=== PATIENT | female | born 1990 | race Caucasian/White ===

== ENCOUNTER → 2019-07-04 10:27 | Outpatient (CLI) | payer OTHER, SELFPAY ==
[2019-07-04 11:08] LABS: Basophils Absolute Auto 0 /uL (0-100); Basophils Percent Auto 0.3 % (0-2); Eosinophils Absolute Auto 100 /uL (0-450); Eosinophils Percent Auto 1.9 % (2-4); Hematocrit 40.5 % (36-46); Hemoglobin 13.9 g/dL (12.0-16.0); Lymphocytes Absolute Auto 2500 /uL (1100-4500); Lymphocytes Percent Auto 37.5 % (25-40); Mean Corpuscular HGB Conc 34.4 % (30-36); Mean Corpuscular Hemoglobin 30.4 PG (26-34); Mean Corpuscular Volume 88.1 fL (80-100); Monocytes Absolute Auto 500 /uL (0-900); Monocytes Percent Auto 7.9 % (3-14); Neutrophils Absolute Auto 3400 /uL (1500-7000); Neutrophils Percent Auto 52.4 % (50-75); Red Blood Cell Count 4.59 X10^6/uL (4.0-5.2); Red Cell Distribution Width 13.2 % (11.6-14.8); White Blood Cell Count 6.5 X10^3/uL (4.5-11.0)
[2019-07-04 11:16] LABS: Add Manual Diff / Slide Review SLIDE REVIEW
[2019-07-04 11:39] LABS: Alanine Aminotransferase 18 IU/L (<35); Albumin 4.3 g/dL (3.5-5.0); Albumin Globulin Ratio 1.4 (1.0-2.8); Alkaline Phosphatase 79 U/L (38-126); Aspartate Aminotransferase 26 IU/L (14-36); BUN Creatinine Ratio 14.7 (6-22); Bilirubin Total 0.4 mg/dL (0.2-1.3); Blood Urea Nitrogen 10 mg/dL (7-17); Calcium 9.6 mg/dL (8.4-10.2); Carbon Dioxide 26 mmol/L (22-32); Chloride 106 mmol/L (98-107); Cholesterol 158 mg/dL (140-199); Estimated Glomerular Filt Rate > 60.0 mL/min (>60); Globulin 3.1 g/dL (1.7-4.1); Glucose 105 mg/dL (70-100); HDL Cholesterol 39 mg/dL (40-60); HEMOLYSIS < 15 (0-50); LDL Cholesterol Calculated 103 mg/dL (<100); Potassium 4.3 mmol/L (3.4-5.1); Sodium 138 mmol/L (137-145); Total Protein 7.4 g/dL (6.3-8.2); Triglycerides 78 mg/dL (35-150)
[2019-07-04 12:08] LABS: Thyroid Stimulating Hormone 3.03 uIU/mL (0.47-4.68)
[2019-07-04 13:07] LABS: Hemoglobin A1C% w Est Avg Glu 4.7 % (4.0-6.0)
[2019-07-04 13:17] LABS: RBC Morphology Normal Morphology
[2019-07-04 13:18] LABS: Platelet Count 302 X10^3/uL (150-400)
== END ==
PROVIDERS: PCP Naturopath; Referring Provider Naturopath; Visit Provider Naturopath
DX: Z00.00 Encounter for general adult medical examination without abnormal findings (principal); Z13.29 Encounter for screening for other suspected endocrine disorder
CPT/HCPCS: 36415; 80053; 80061; 83036; 84443; 85025; 86900; 86901

== ENCOUNTER → 2020-02-26 17:12 | Outpatient (CLI) | payer OTHER, SELFPAY ==
--- NOTE | 2020-02-26 | DI.US.S_ITS ---
PROCEDURE: US OB <= 14 WEEKS FETUS INDICATIONS: 1st with spotting OUTSIDE/PRIOR DATING DATA: Last menstrual period (LMP): 12/31/19. LMP-based estimated date of delivery (JAGDISH): 10/06/20 . First dating scan (date and location): 02/26/20 . Estimated date of delivery (JAGDISH) from first dating scan: 10/01/20 . TECHNIQUE: Real-time scanning was performed of the fetuses and maternal pelvic organs, with image documentation. Endovaginal scanning: Performed for better visualization of the fetuses and maternal adnexal structures. COMPARISON: None. FINDINGS: General: An intrauterine diamniotic dichorionic twin is present, as evidenced by separate placental sites and/or intervening membrane thickness of greater than 2 mm at this early gestational age. Embryo A: Maternal right position. [place]-rump length measures 1.92 cm, 8 weeks 3 days. heart rate measures 163 beats per minute. Yolk sac seen. Embryo B: Maternal left position. [place]-rump length measures 2.2 cm, 8 weeks 6 days. heart rate measures 169 beats per minute. Yolk sac seen. Measurement variability in dating: +/- 4 weeks by LMP, +/- 7 days by mean sac diameter (use before 6 weeks gestation if crown-rump length unable to be measured), +/- 5 days by crown-rump length (up to 8 weeks 6 days gestation), +/- 7 days by crown-rump length (up to 13 weeks 6 days gestation). Maternal organs: Ovaries unremarkable. Cervical length 4.4 cm. Limited images through the kidneys demonstrate no hydronephrosis. IMPRESSION: Twin living intrauterine fetuses as above. JAGDISH of 10/01/20, concordant with reported LMP. Dictated by: Cesar Mccullough M.D. on 02/27/2020 at 9:52 Approved by: Cesar Mccullough M.D. on 02/27/2020 at 9:56
== END ==
PROVIDERS: PCP Naturopath; Referring Provider Nurse Practitioner Obstetrics & Gynecology; Visit Provider Nurse Practitioner Obstetrics & Gynecology
DX: O26.851 Spotting complicating pregnancy, first trimester (principal); O30.041 Twin pregnancy, dichorionic/diamniotic, first trimester; Z3A.08 8 weeks gestation of pregnancy
CPT/HCPCS: 76801

== ENCOUNTER → 2020-04-27 15:28 | Outpatient (CLI) | payer OTHER, SELFPAY ==
[2020-04-27 15:48] LABS: Add Manual Diff / Slide Review NO; Basophils Absolute Auto 0 /uL (0-100); Basophils Percent Auto 0.2 % (0-2); Eosinophils Absolute Auto 100 /uL (0-450); Eosinophils Percent Auto 0.7 % (2-4); Hematocrit 36.1 % (36-46); Hemoglobin 12.5 g/dL (12.0-16.0); Lymphocytes Absolute Auto 1800 /uL (1100-4500); Lymphocytes Percent Auto 17.6 % (25-40); Mean Corpuscular HGB Conc 34.7 % (30-36); Mean Corpuscular Hemoglobin 30.6 PG (26-34); Monocytes Absolute Auto 600 /uL (0-900); Monocytes Percent Auto 5.9 % (3-14); Neutrophils Absolute Auto 7600 /uL (1500-7000); Neutrophils Percent Auto 75.6 % (50-75); Platelet Count 302 X10^3/uL (150-400); Red Cell Distribution Width 14.2 % (11.6-14.8)
[2020-04-27 20:31] LABS: HIV 1 & 2 Ab/Ag 4th Gen Combo NEGATIVE (NEGATIVE); Hep C Virus Ab w/Reflex Quant NEGATIVE s/c (NEGATIVE); Hepatitis B Surface Antigen NEGATIVE s/c (NEGATIVE); Rubella Antibody IgG 28.8 IU/mL (>15)
[2020-04-28 07:08] LABS: RPR Screen Non Reactive (Non Reactive)
[2020-04-28 08:40] LABS: Varicella IgG Antibody 2539 index (Immune >165)
== END ==
PROVIDERS: PCP Naturopath; Referring Provider Obstetrics & Gynecology; Visit Provider Obstetrics & Gynecology
DX: O30.001 Twin pregnancy, unspecified number of placenta and unspecified number of amniotic sacs, first trimester (principal)
CPT/HCPCS: 36415; 80055; 86787; 86803; 86850; 86900; 86901; 87389

== ENCOUNTER → 2020-05-25 11:04 | Outpatient (CLI) | payer OTHER, SELFPAY ==
--- NOTE | 2020-05-25 11:05 | DI.US.S_ITS ---
PROCEDURE: US OB >= 14 WEEKS FETUS INDICATIONS: ANATOMY-TWINS OUTSIDE/PRIOR DATING DATA: Last menstrual period (LMP): 12/31/2019. LMP-based estimated date of delivery (JAGDISH): 10/06/2020 . First dating scan (date and location): 02/26/2020 . Estimated date of delivery (JAGDISH) from first dating scan: 10/04/2020 . TECHNIQUE: Real-time scanning was performed of the fetuses, with image documentation and biometric measurements. Endovaginal scanning: No COMPARISON: None. FINDINGS: General: An intrauterine dichorionic-diamniotic twin is present, as evidenced by separate placentas, differing sexes, or an intervening membrane of greater than 2 mm. Amniotic fluid index (composite): 14.2 cm. Maternal cervical canal: 4.1 cm long. Normal lower limit is 2.5 cm. FETUS A: Fetus is located on the maternal right side, and is in vertex presentation. Largest amniotic fluid pocket: Not obtained Placental position is posterior , without previa. heart rate: 147 beats per minute. biometrics: Biparietal diameter: 21 weeks 4 days Head circumference: 21 weeks 5 days Abdominal circumference: 23 weeks 3 days Femur length: 22 weeks 2 days Estimated gestational age from initial scan: 21 weeks 1 day Composite gestational age from present scan: 22 weeks 2 days Estimated weight and percentile: 528 g; 99th percentile Measurement variability for biometric dating: +/- 7 days from 14 weeks to 15 weeks 6 days gestation, +/- 10 days from 16 weeks to 21 weeks 6 days gestation, +/- 2 weeks from 22 weeks to 27 weeks 6 days gestation, +/- 3 weeks for 28 weeks gestation or later. weight reference: 4500 g or EFW >90/95% is considered macrosomia or large for gestational age. EFW <10% is small for gestational age. EFW 5% or less is considered intra-uterine growth restriction. Anatomic survey: Neuro: Ventricles are normal at less than 10 mm. Cisterna magna is normal at 3-11 mm. Cerebellum is normal in size and morphology. Nuchal skin fold: Normal at less than 6 mm between 14 and 21 weeks gestational age. Face: Nose and lips, facial profile are normal. Spine: No evidence for spina bifida. Heart: 4 chambered heart is present, with normal ventricular outflow tracts. Diaphragm: Diaphragm is intact. Stomach: Left-sided stomach is present. Kidneys: No hydronephrosis. Normal ranges are less than 5 mm in 2nd trimester, less than 7 mm in 3rd trimester. Cord: 3 vessel cord has orthotopic insertion. Bladder: Normal in size. Extremities: All 4 extremities are visualized. FETUS B: Fetus is located on the maternal left side, and is in breech presentation. Largest amniotic fluid pocket: Not obtained Placental position is posterior , without previa. heart rate: 162 beats per minute. biometrics: Biparietal diameter: 20 weeks 5 days Head circumference: 20 weeks 6 days Abdominal circumference: 21 weeks Femur length: 20 weeks 4 days Estimated gestational age from initial scan: 21 weeks 1 Composite gestational age from present scan: 21 weeks 1 day Estimated weight and percentile: 413 g; 53rd percentile Measurement variability for biometric dating: +/- 7 days from 14 weeks to 15 weeks 6 days gestation, +/- 10 days from 16 weeks to 21 weeks 6 days gestation, +/- 2 weeks from 22 weeks to 27 weeks 6 days gestation, +/- 3 weeks for 28 weeks gestation or later. weight reference: 4500 g or EFW >90/95% is considered macrosomia or large for gestational age. EFW <10% is small for gestational age. EFW 5% or less is considered intra-uterine growth restriction. Anatomic survey: Neuro: Ventricles are normal at less than 10 mm. Cisterna magna is normal at 3-11 mm. Cerebellum is normal in size and morphology. Nuchal skin fold: Normal at less than 6 mm between 14 and 21 weeks gestational age. Face: Nose and lips, facial profile are normal. Spine: No evidence for spina bifida. Heart: 4 chambered heart is present, with normal ventricular outflow tracts. Diaphragm: Diaphragm is intact. Stomach: Left-sided stomach is present. Kidneys: No hydronephrosis. Normal ranges are less than 5 mm in 2nd trimester, less than 7 mm in 3rd trimester. Cord: 3 vessel cord has orthotopic insertion. Bladder: Normal in size. Extremities: All 4 extremities are visualized. IMPRESSION: 1. Living twin diamniotic dichorionic redemonstrated and estimated weight for fetus A is 99th percentile and 53rd percentile for fetus B. Continued follow-up recommended. 2. Normal anatomic survey for each fetus. Dictated by: Shayne MEJIA Interpreted: Jamila Hays MD on 05/25/2020 at 16:40 Approved by: Jamila Hays M.D. on 05/25/2020 at 17:12
[2020-05-27 19:07] LABS: Calc Gestational Age Ultrasound (.); Estriol, Free 5.15 ng/mL (.); Inhibin A, Dimeric 299.44 pg/mL (.); Inhibin A, MoM 2.57 (.); Maternal Ethnicity Caucasian (.); Maternal Weight 273 lbs (.); Number of Fetuses Twins (.); OSBR Risk 1 IN 578 (.); Results Report (.); Test Results *Screen Negative* (.); hCG, MoM 1.94 (.)
== END ==
PROVIDERS: PCP Naturopath; Referring Provider Obstetrics & Gynecology; Visit Provider Obstetrics & Gynecology
DX: O30.042 Twin pregnancy, dichorionic/diamniotic, second trimester (principal); Z3A.22 22 weeks gestation of pregnancy
CPT/HCPCS: 36415; 76811; 76812; 82105; 82677; 84702; 86336

== ENCOUNTER → 2020-06-29 16:14 | Outpatient (CLI) | payer OTHER, SELFPAY | PROVIDERS: PCP Naturopath; Visit Provider Obstetrics & Gynecology | DX: Z34.02 Encounter for supervision of normal first pregnancy, second trimester (principal); Z3A.26 26 weeks gestation of pregnancy | CPT/HCPCS: 87086 ==

== ENCOUNTER → 2020-07-05 12:35 | Outpatient (CLI) | payer OTHER, SELFPAY ==
[2020-07-05 14:21] LABS: Hematocrit 31.6 % (36-46); Hemoglobin 10.9 g/dL (12.0-16.0)
[2020-07-05 14:59] LABS: GTT (PREG) 1 Hour PP 50gm Dose 150 mg/dL (76-139)
== END ==
PROVIDERS: PCP Naturopath; Referring Provider Obstetrics & Gynecology; Visit Provider Obstetrics & Gynecology
DX: Z34.02 Encounter for supervision of normal first pregnancy, second trimester (principal); Z3A.26 26 weeks gestation of pregnancy
CPT/HCPCS: 36415; 82950; 85014; 85018

== ENCOUNTER → 2020-07-12 09:58 | Outpatient (CLI) | payer OTHER, SELFPAY ==
[2020-07-12 13:40] LABS: Glucose Tol Interp,Gestational INTERPRETATION
[2020-07-12 14:07] LABS: Glucose 2 Hour Gest 156 mg/dL (76-155)
[2020-07-12 14:07] LABS: Glucose 1 Hour Gest 163 mg/dL (76-180)
[2020-07-12 14:08] LABS: Glucose 3 Hour Gest 119 mg/dL (76-140)
[2020-07-12 14:08] LABS: Glucose Fasting Gestational 81 mg/dL (76-95)
== END ==
PROVIDERS: PCP Naturopath; Referring Provider Obstetrics & Gynecology; Visit Provider Obstetrics & Gynecology
DX: Z34.90 Encounter for supervision of normal pregnancy, unspecified, unspecified trimester (principal); R73.09 Other abnormal glucose
CPT/HCPCS: 36415; 82951; 82952

== ENCOUNTER 2020-08-30 14:53 | Observation (INO) | payer OTHER, SELFPAY | END 2020-08-30 19:00 | disposition home or self-care (01) | PROVIDERS: Admitting Provider Obstetrics & Gynecology; PCP Naturopath; Referring Provider Obstetrics & Gynecology; Visit Provider Obstetrics & Gynecology | DX: O30.049 Twin pregnancy, dichorionic/diamniotic, unspecified trimester (principal); Z3A.35 35 weeks gestation of pregnancy | CPT/HCPCS: 87653; G0378; G0379 ==

== ENCOUNTER → 2020-08-30 16:23 | Outpatient (CLI) | payer OTHER, SELFPAY ==
[2020-08-31 14:47] LABS: Strep Grp B PCR NEG for Grp B Strep
== END ==
PROVIDERS: PCP Naturopath; Visit Provider Obstetrics & Gynecology
DX: Z34.03 Encounter for supervision of normal first pregnancy, third trimester (principal); Z3A.35 35 weeks gestation of pregnancy
CPT/HCPCS: 87653

== ENCOUNTER 2020-09-06 12:14 | Inpatient (IN) | payer OTHER, SELFPAY ==
[2020-09-06 16:05] LABS: Add Manual Diff / Slide Review NO; Basophils Absolute Auto 100 /uL (0-100); Basophils Percent Auto 0.8 % (0-2); Eosinophils Absolute Auto 0 /uL (0-450); Eosinophils Percent Auto 0.3 % (2-4); Hematocrit 29.3 % (36-46); Hemoglobin 9.5 g/dL (12.0-16.0); Lymphocytes Absolute Auto 1600 /uL (1100-4500); Lymphocytes Percent Auto 21.7 % (25-40); Mean Corpuscular HGB Conc 32.6 % (30-36); Mean Corpuscular Hemoglobin 25.1 PG (26-34); Mean Corpuscular Volume 76.9 fL (80-100); Monocytes Absolute Auto 500 /uL (0-900); Monocytes Percent Auto 6.8 % (3-14); Neutrophils Absolute Auto 5300 /uL (1500-7000); Neutrophils Percent Auto 70.4 % (50-75); Platelet Count 311 X10^3/uL (150-400); Red Cell Distribution Width 16.3 % (11.6-14.8); White Blood Cell Count 7.5 X10^3/uL (4.5-11.0)
[2020-09-06 16:18] LABS: Aspartate Aminotransferase 24 IU/L (14-36); BUN Creatinine Ratio 10.2 (6-22); Blood Urea Nitrogen 6 mg/dL (7-17); Estimated Glomerular Filt Rate > 60.0 mL/min (>60); Uric Acid 7.7 mg/dL (2.5-6.2)
[2020-09-06 17:30] LABS: Protein (Total) Urine Random 4160 mg/dL (0-12)
[2020-09-06 17:55] LABS: Protein Creatinine Ratio Urine 14.19 GRAM/24H
--- NOTE | 2020-09-06 18:24 | PM.OBHP.1 ---
OB HPI Date/Time Date of admission: 09/06/20 Date Patient Seen: 09/06/20 Time Patient Seen: 18:26 History of Present Condition Chief complaint: Estimated Date of Delivery: 10/04/20 Estimated Gestational Age (weeks): 36 Narrative: Johana Tineo is a 30 year old at 36 weeks 0 days with spontaneous, di-di twins, now admitted for surveillance for preeclampsia without severe features. The patient had elevated blood pressures in clinic and 3+ urine protein on urine dip, along with a weight gain of 9 lb in 1 week. She was sent to Labor and delivery for monitoring and preeclampsia labs. Platelets, liver function, kidney function were normal, though the patient had an elevated uric acid and a significantly elevated urine protein creatinine ratio. Blood pressures continued to be 130s to 140s over 80s to 90s. Patient has no headaches, visual changes, right upper quadrant pain, chest pain, or obstetric complaints. Her has been otherwise uncomplicated, though she had some early vaginal bleeding. She has no other contributory medical, surgical, or social history. History of Present care: good care Dating criteria: LMP confirmed by 1st trimester US Ultrasounds: normal 1st trimester US and normal mid trimester US Obstetrical complications: preeclampsia Medical complications: none Preadmission Labs Blood type: O (+) positive -: Antibody screen: negative, GBS status: negative, HBsAG: negative, HIV: negative and RPR/VDLR: negative -: Rubella: immune and Varicella: immune 1 hr GTT: 150 3 hr GTT: 1 hr (163), 2 hr (156) and 3 hr (119) Fasting blood glucose: 83 Evaluation Evaluation Baseline heart rate: 135 Variability: Moderate (11-25) monitor accelerations: Present Monitor Decelerations: Absent Contraction Frequency (minutes): 3 Uterine Contraction Intensity: Mild Category of Tracing: Reactive Status: Category l Laboratory results: Laboratory Tests 09/06/20 09/06/20 09/06/20 15:52 15:52 16:00 WBC 7.5 RBC 3.80 L Hgb 9.5 L Hct 29.3 L MCV 76.9 L MCH 25.1 L MCHC 32.6 RDW 16.3 H Plt Count 311 Neut % (Auto) 70.4 Lymph % (Auto) 21.7 L [place] % (Auto) 6.8 Eos % (Auto) 0.3 L Baso % (Auto) 0.8 Neut # (Auto) 5300 Lymph # (Auto) 1600 [place] # (Auto) 500 Eos # (Auto) 0 Baso # (Auto) 100 BUN 6 L Creatinine 0.59 Estimated GFR > 60.0 BUN/Creatinine Ratio 10.2 Uric Acid 7.7 H AST 24 U Random Total Protein 4160 H Urine Creatinine 293.0 Protein/Creatinin Ratio 14.19 Comments: Baby B baseline 135, moderate variability, accels, no decels, category 1. Asymptomatic intermittent contractions, as often as Q tube patient does not feel them. No other obstetric complaints. Patient had ultrasound performed by Dr. Mcgee, normal fluid for both babies, both babies vertex, both babies AGA. 08/25 growth: Baby a is in the vertex presentation. A GA 35 weeks 5 days. 6 lb 0 oz. 56%ile. Baby B in the vertex presentation. AGA 37 weeks 2 days. 7 lb 1 oz. 85%ile [facility] Medical History Anxiety Dichorionic diamniotic twin (~02/2020) Ingrown toenail of both feet (~2011) Surgical History S/P matrixectomy of toe (~2011) Family History Mother Anemia Gallbladder disease Autoimmune hemolytic anemia Father Myocardial infarction Heavy smoker Optic nerve disorder Non-arteritic AION (anterior ischemic optic neuropathy) Grandmother Diabetes mellitus CVA (cerebral vascular accident) Hypertension Grandfather No problems noted. Grandmother Myocardial infarction Grandfather No problems noted. Family/Other Drug abuse Hemorrhagic stroke Family/Other Diabetes mellitus Family/Other Family history of identical twins Social History marital status: unmarried,living together household members: significant other lives independently: Yes pets and animals: Yes (X 2 dogs) education level: college occupational status: employed current occupational exposures/hazards: No special alli needs: No Smoking Status: Never smoker second hand exposure: No alcohol intake: former substance use type: does not use and marijuana Meds Home Medications and Allergies Home Medications Medication Instructions Recorded Confirmed Type cholecalciferol (vitamin D3) 75 75 mcg PO DAILY 03/10/20 09/06/20 History mcg (3,000 unit) tablet prenat.vits,bassam,qoe-ucmo-dpnot 1 tab PO DAILY 03/10/20 09/06/20 History folic acid 400 mcg tablet 0.4 mg PO DAILY #1 tab 03/17/20 09/06/20 Rx pantoprazole 40 mg tablet,delayed 40 mg PO DAILY #30 tab 07/26/20 09/06/20 Rx release Allergies Allergy/AdvReac Type Severity Reaction Status Date / Time No Known Drug Allergies Allergy Verified 09/06/20 12:58 Review of Systems Constitutional Constitutional: Reports system reviewed and no additional complaints, except as documented Cardiovascular Cardiovascular: Reports system reviewed and no additional complaints, except as documented Respiratory Respiratory: Reports system reviewed and no additional complaints, except as documented Gastrointestinal Gastrointestinal: Reports system reviewed and no additional complaints, except as documented Genitourinary Genitourinary: Reports system reviewed and no additional complaints, except as documented Musculoskeletal Musculoskeletal: Reports system reviewed and no additional complaints, except as documented Neurologic Neurologic: Reports system reviewed and no additional complaints, except as documented Exam Vital Signs (past 8 hours): 130s to 140s over 80s to 90s. Heart rate low 100s. Narrative Exam Narrative: Patient resting in bed, accompanied by . Well-appearing. Objective Labs Result Diagrams: 09/06/20 15:52 09/06/20 15:52 Labs: Laboratory Results - last 24 hr 09/06/20 09/06/20 09/06/20 15:52 15:52 16:00 WBC 7.5 RBC 3.80 L Hgb 9.5 L Hct 29.3 L MCV 76.9 L MCH 25.1 L MCHC 32.6 RDW 16.3 H Plt Count 311 Neut % (Auto) 70.4 Lymph % (Auto) 21.7 L [place] % (Auto) 6.8 Eos % (Auto) 0.3 L Baso % (Auto) 0.8 Neut # (Auto) 5300 Lymph # (Auto) 1600 [place] # (Auto) 500 Eos # (Auto) 0 Baso # (Auto) 100 BUN 6 L Creatinine 0.59 Estimated GFR > 60.0 BUN/Creatinine Ratio 10.2 Uric Acid 7.7 H AST 24 U Random Total Protein 4160 H Urine Creatinine 293.0 Protein/Creatinin Ratio 14.19 Assessment and Plan Assessment and Plan Assessment and Plan narrative: This patient is admitted for monitoring with 36 week spontaneous di-di twins in the setting of preeclampsia without severe features. Patient has no history of pre-existing hypertension. The patient had previously discussed the pathophysiology of preeclampsia with Dr. Mcgee in clinic along with recommended testing, and we reviewed this information. We discussed that she currently meets diagnostic criteria for preeclampsia without severe features, for which delivery at 37 weeks is indicated. However, we also discussed that given her twin gestation, her significant elevation in uric acid and urine protein creatinine ratio, and her overall presentation, both Dr. Mcgee and I are concerned that she has the potential progression to severe features which would lead to delivery now. We discussed admission overnight for observation. We discussed the pathophysiology of betamethasone and its utility in lung immaturity and deliveries, we discussed that though it was not originally studied in twin pregnancies, mechanistically it is thought to be of benefit and administration in multiple gestations is frequently practiced by experts in the field. We discussed repeat labs in the morning and collection of a 24 hour urine protein to better assess her proteinuria. We discussed intermittent testing and blood pressure monitoring, and signs and symptoms of severe preeclampsia such as headache, visual changes, and right upper quadrant pain. We discussed that she should alert the nurse to these symptoms immediately if they develop. The patient and her partner vocalized understanding of the plan, and all questions were answered. - Given near term stability, for dinner with NPO overnight pending AM labs - BPs q1 hr while awake, q4 while asleep - IM betamethasone 12mg q24 hr x2 doses - NSTs q shift - Repeat H labs ordered for 6 AM - 24 hour urine protein collection initiated
[2020-09-06] MEDS: BETAMETHASONE 30 MG/5 ML MDV 12 MG IM (19:22)
[2020-09-07 06:08] LABS: Add Manual Diff / Slide Review NO; Basophils Absolute Auto 0 /uL (0-100); Basophils Percent Auto 0.3 % (0-2); Eosinophils Absolute Auto 0 /uL (0-450); Hematocrit 30.9 % (36-46); Hemoglobin 9.9 g/dL (12.0-16.0); Lymphocytes Absolute Auto 1100 /uL (1100-4500); Lymphocytes Percent Auto 12.8 % (25-40); Mean Corpuscular HGB Conc 31.9 % (30-36); Mean Corpuscular Hemoglobin 24.7 PG (26-34); Mean Corpuscular Volume 77.5 fL (80-100); Monocytes Absolute Auto 200 /uL (0-900); Monocytes Percent Auto 2.1 % (3-14); Neutrophils Absolute Auto 7100 /uL (1500-7000); Neutrophils Percent Auto 84.8 % (50-75); Platelet Count 331 X10^3/uL (150-400); Red Blood Cell Count 3.98 X10^6/uL (4.0-5.2); Red Cell Distribution Width 15.8 % (11.6-14.8); White Blood Cell Count 8.4 X10^3/uL (4.5-11.0)
[2020-09-07 06:27] LABS: Aspartate Aminotransferase 26 IU/L (14-36); BUN Creatinine Ratio 13.6 (6-22); Blood Urea Nitrogen 8 mg/dL (7-17); Estimated Glomerular Filt Rate > 60.0 mL/min (>60); Uric Acid 8.1 mg/dL (2.5-6.2)
[2020-09-07 07:00] LABS: COVID19 - ADMIT (NP swab/PCR) Negative (Negative)
--- NOTE | 2020-09-07 07:20 | P.TNLD_ITS ---
Visit Information Visit Information Date of evaluation: 09/06/20 Primary OB Provider: Brittany Mcgee Reason for Evaluation: Yes non-stress test non-stress test reason: other (twins) [facility] Medical History Anxiety Dichorionic diamniotic twin (~02/2020) Ingrown toenail of both feet (~2011) Surgical History S/P matrixectomy of toe (~2011) Family History Mother Anemia Gallbladder disease Autoimmune hemolytic anemia Father Myocardial infarction Heavy smoker Optic nerve disorder Non-arteritic AION (anterior ischemic optic neuropathy) Grandmother Diabetes mellitus CVA (cerebral vascular accident) Hypertension Grandfather No problems noted. Grandmother Myocardial infarction Grandfather No problems noted. Family/Other Drug abuse Hemorrhagic stroke Family/Other Diabetes mellitus Family/Other Family history of identical twins Social History marital status: unmarried,living together household members: significant other lives independently: Yes pets and animals: Yes (X 2 dogs) education level: college occupational status: employed current occupational exposures/hazards: No special alli needs: No Smoking Status: Never smoker second hand exposure: No alcohol intake: former substance use type: does not use and marijuana Objective Labs Result Diagrams: 09/07/20 05:51 09/07/20 05:51 Labs: Laboratory Results - last 24 hr 09/06/20 09/06/20 09/06/20 15:52 15:52 16:00 WBC 7.5 RBC 3.80 L Hgb 9.5 L Hct 29.3 L MCV 76.9 L MCH 25.1 L MCHC 32.6 RDW 16.3 H Plt Count 311 Neut % (Auto) 70.4 Lymph % (Auto) 21.7 L [place] % (Auto) 6.8 Eos % (Auto) 0.3 L Baso % (Auto) 0.8 Neut # (Auto) 5300 Lymph # (Auto) 1600 [place] # (Auto) 500 Eos # (Auto) 0 Baso # (Auto) 100 BUN 6 L Creatinine 0.59 Estimated GFR > 60.0 BUN/Creatinine Ratio 10.2 Uric Acid 7.7 H AST 24 U Random Total Protein 4160 H Urine Creatinine 293.0 Protein/Creatinin Ratio 14.19 SARS-CoV-2 (PCR) 09/07/20 09/07/20 09/07/20 05:51 05:51 06:37 WBC 8.4 RBC 3.98 L Hgb 9.9 L Hct 30.9 L MCV 77.5 L MCH 24.7 L MCHC 31.9 RDW 15.8 H Plt Count 331 Neut % (Auto) 84.8 H Lymph % (Auto) 12.8 L [place] % (Auto) 2.1 L Eos % (Auto) 0.0 L Baso % (Auto) 0.3 Neut # (Auto) 7100 H Lymph # (Auto) 1100 [place] # (Auto) 200 Eos # (Auto) 0 Baso # (Auto) 0 BUN 8 Creatinine 0.59 Estimated GFR > 60.0 BUN/Creatinine Ratio 13.6 Uric Acid 8.1 H AST 26 U Random Total Protein Urine Creatinine Protein/Creatinin Ratio SARS-CoV-2 (PCR) Negative Evaluation Evaluation Baseline heart rate: 135 Variability: Moderate (11-25) monitor accelerations: Present Monitor Decelerations: Absent Uterine Contraction Intensity: Mild Category of Tracing: Reactive Laboratory results: Laboratory Tests 09/06/20 09/06/20 09/06/20 15:52 15:52 16:00 WBC 7.5 RBC 3.80 L Hgb 9.5 L Hct 29.3 L MCV 76.9 L MCH 25.1 L MCHC 32.6 RDW 16.3 H Plt Count 311 Neut % (Auto) 70.4 Lymph % (Auto) 21.7 L [place] % (Auto) 6.8 Eos % (Auto) 0.3 L Baso % (Auto) 0.8 Neut # (Auto) 5300 Lymph # (Auto) 1600 [place] # (Auto) 500 Eos # (Auto) 0 Baso # (Auto) 100 BUN 6 L Creatinine 0.59 Estimated GFR > 60.0 BUN/Creatinine Ratio 10.2 Uric Acid 7.7 H AST 24 U Random Total Protein 4160 H Urine Creatinine 293.0 Protein/Creatinin Ratio 14.19 SARS-CoV-2 (PCR) 09/07/20 09/07/20 09/07/20 05:51 05:51 06:37 WBC 8.4 RBC 3.98 L Hgb 9.9 L Hct 30.9 L MCV 77.5 L MCH 24.7 L MCHC 31.9 RDW 15.8 H Plt Count 331 Neut % (Auto) 84.8 H Lymph % (Auto) 12.8 L [place] % (Auto) 2.1 L Eos % (Auto) 0.0 L Baso % (Auto) 0.3 Neut # (Auto) 7100 H Lymph # (Auto) 1100 [place] # (Auto) 200 Eos # (Auto) 0 Baso # (Auto) 0 BUN 8 Creatinine 0.59 Estimated GFR > 60.0 BUN/Creatinine Ratio 13.6 Uric Acid 8.1 H AST 26 U Random Total Protein Urine Creatinine Protein/Creatinin Ratio SARS-CoV-2 (PCR) Negative Diagnosis, Plan/Disposition Plan/Disposition Plan: Assessment: Reactive NST x 2 Di/Di twins at 36 weeks Plan: OB Disposition: home
[2020-09-07 08:01] VITALS: BP 133/77
--- NOTE | 2020-09-07 09:54 | PM.PN.1 ---
Subjective Subjective Date Patient Seen: 09/07/20 Time Patient Seen: 07:50 Interval history: Patient is a 30-year-old 1 para 0 at 36-,1/7 weeks gestation with dichorionic/diamniotic twins. She was admitted overnight due to significant protein in her urine over 1 g. Her uric acid was also 7.9 and this morning is up to a 8.1. Her blood pressures have been mildly elevated in the 130s to 140s over 80s range. Occasional diastolics in the 90s. No headaches or blurred vision. Good movement. Nonstress tests have been reactive x2. Exam Vital Signs (past 8 hours): - 09/07/20 08:01 Blood Pressure 133/77 Narrative Exam Narrative: Generally: Patient is sitting up in bed, no acute distress Lungs: CTA bilaterally CV: Regular rate and rhythm FH: 44 cm ABD: Significant edema of the pannus Ext: 1+ edema, 1+ DTR's. Objective Labs Result Diagrams: 09/07/20 05:51 09/07/20 05:51 Labs: Laboratory Results - last 24 hr 09/06/20 09/06/20 09/06/20 15:52 15:52 16:00 WBC 7.5 RBC 3.80 L Hgb 9.5 L Hct 29.3 L MCV 76.9 L MCH 25.1 L MCHC 32.6 RDW 16.3 H Plt Count 311 Neut % (Auto) 70.4 Lymph % (Auto) 21.7 L [place] % (Auto) 6.8 Eos % (Auto) 0.3 L Baso % (Auto) 0.8 Neut # (Auto) 5300 Lymph # (Auto) 1600 [place] # (Auto) 500 Eos # (Auto) 0 Baso # (Auto) 100 BUN 6 L Creatinine 0.59 Estimated GFR > 60.0 BUN/Creatinine Ratio 10.2 Uric Acid 7.7 H AST 24 U Random Total Protein 4160 H Urine Creatinine 293.0 Protein/Creatinin Ratio 14.19 SARS-CoV-2 (PCR) 09/07/20 09/07/20 09/07/20 05:51 05:51 06:37 WBC 8.4 RBC 3.98 L Hgb 9.9 L Hct 30.9 L MCV 77.5 L MCH 24.7 L MCHC 31.9 RDW 15.8 H Plt Count 331 Neut % (Auto) 84.8 H Lymph % (Auto) 12.8 L [place] % (Auto) 2.1 L Eos % (Auto) 0.0 L Baso % (Auto) 0.3 Neut # (Auto) 7100 H Lymph # (Auto) 1100 [place] # (Auto) 200 Eos # (Auto) 0 Baso # (Auto) 0 BUN 8 Creatinine 0.59 Estimated GFR > 60.0 BUN/Creatinine Ratio 13.6 Uric Acid 8.1 H AST 26 U Random Total Protein Urine Creatinine Protein/Creatinin Ratio SARS-CoV-2 (PCR) Negative [facility] Medical History Anxiety Dichorionic diamniotic twin (~02/2020) Ingrown toenail of both feet (~2011) Surgical History S/P matrixectomy of toe (~2011) Family History Mother Anemia Gallbladder disease Autoimmune hemolytic anemia Father Myocardial infarction Heavy smoker Optic nerve disorder Non-arteritic AION (anterior ischemic optic neuropathy) Grandmother Diabetes mellitus CVA (cerebral vascular accident) Hypertension Grandfather No problems noted. Grandmother Myocardial infarction Grandfather No problems noted. Family/Other Drug abuse Hemorrhagic stroke Family/Other Diabetes mellitus Family/Other Family history of identical twins Social History marital status: unmarried,living together household members: significant other lives independently: Yes pets and animals: Yes (X 2 dogs) education level: college occupational status: employed current occupational exposures/hazards: No special alli needs: No Smoking Status: Never smoker second hand exposure: No alcohol intake: former substance use type: does not use and marijuana Assessment & Plan Assessment & Plan narrative: Assessment: 30-year-old 1 para 0 with dichorionic/diamniotic twins at 36-,1/7 weeks gestation Significant proteinuria and increasing uric acid 9 lb weight gain in 1 week Plan: Primary low-transverse section The risks, benefits, and alternatives to the procedure were explained to the patient. The risks including bleeding, infection, injury to the bowel, bladder, or ureters. She understands these risks and agrees to proceed. A full par Q was held and consent form was signed. COVID-19 COVID-19 status: Negative Result date/Date tested (Pos, Neg/Pending): 09/07/20 Time Spent With Patient Time with patient: 15-24 minutes
--- NOTE | 2020-09-07 09:55 | PM.PREOP ---
Pre-operative Note COVID-19 COVID-19 status: Negative Result date/Date tested (Pos, Neg/Pending): 09/07/20 Interval Note History & Physical reviewed/Exam performed by Physician: Yes Changes to H&P: No H&P completed within 30 days and has changed as indicated here:: 09/06/20
[2020-09-07] MEDS: LACTATED RINGERS 1,000 ML 999 ML IV (12:51)
[2020-09-07] MEDS: CEFAZOLIN VIAL 3 GM in SODIUM CHLORIDE 0.9% 100 ML 200 ML IV (13:50)
--- NOTE | 2020-09-07 14:08 | SUR.OPER ---
Supine on Padded OR bed, head on pillow, safety belt at thigh, arms secured on padded arm boards at <90 degrees abduction. Bump under right buttock. Legs uncrossed, gel pad to heels, tape over blanket to lower legs.
--- NOTE | 2020-09-07 14:36 | SUR.OPER ---
Viable Baby A-female, delivered at 1411, Viable Baby-B male, delivered at 1414. placenta delivered. Cord blood tubes X4 for baby A & baby B, and placenta given to L&D RN.
--- NOTE | 2020-09-07 15:05 | P.OP_ITS ---
Operative Date/Time/Diagnoses Date of procedure: 09/07/20 Time of procedure: 15:06 Pre-op diagnosis: Dichorionic/diamniotic twins at 36-,1/7 weeks gestation Preeclampsia Post-op diagnosis: same Procedure & Clinicians Procedure: Primary low-transverse section Same procedure as scheduled: Yes Indications: Dichorionic/diamniotic twins at 36-,1/7 weeks gestation Preeclampsia Surgeon: Brittany Martines Yes if Unassisted: No Vulcanizing Machine Operator: Milagros Dawson Reason for Vulcanizing Machine Operator: Patient was morbidly obese. Vulcanizing Machine Operator was necessary for retraction throughout the procedure. She was also necessary for delivery of the twins. She was necessary for retraction for closure of the uterus and all other layers. Anesthesia Type: Spinal Operative Notes Findings: Baby a live female infant Baby B live male infant Clear amniotic fluid in both sacs Normal uterus, tubes, and ovaries Closure Type: primary Specimen(s): cord blood (X2), cord pH (X2) and placenta Intraoperative meds administered: Duramorph and Ketorolac Applied: Catheter (To continuous drainage) Estimated Blood Loss (mL): 500 Blood products transfused: none Procedure in detail: The patient was taken to the operating room where she was placed in the seated position. Spinal anesthesia was administered. She was then placed in the dorsal supine position with a leftward tilt. She was prepped and draped in the usual sterile fashion. A timeout was performed. After spinal analgesia was found to be adequate, a Pfannenstiel skin incision was made 2 fingerbreadths above the pubic symphysis and carried through to the underlying layer fascia. The fascia was nicked in the midline, and the incision extended bilaterally with the Green scissors. The superior aspect of the fascial incision was grasped with a Nancy clamps, elevated, and the underlying rectus muscles dissected off sharply and bluntly. Attention was then turned to the inferior aspect of this incision which in a similar fashion was grasped with a [place] clamps, elevated, and the underlying rectus muscles dissected off sharply and bluntly. The rectus muscles were in the midline. The peritoneum was identified, grasped between 2 hemostats, and entered sharply with the Metzenbaum scissors. This incision was extended superiorly and inferiorly with good visualization of the bladder. The bladder blade was inserted. The vesicouterine peritoneum was identified, grasped with the pickup, and entered sharply with the Metzenbaum scissors. This incision was extended bilaterally, and the bladder flap was created digitally. The bladder blade was reinserted. The lower uterine segment was incised in a transverse fashion with the scalpel. Upon entering the amniotic sac there was a large amount of clear amniotic fluid in the sac of baby A. The 's head was delivered with vacuum assistance. The nose and lars were obtained. th were suctioned with bulb suction. The remainder of the body delivered without difficulty. The cord was double clamped and cut. Cord bloods were obtained. The infant was handed off to waiting RN, peds, and RT. The sac of baby B was ruptured and there was copious clear amniotic fluid. The 's head was delivered with vacuum assistance. There was a nuchal cord x1 which was reduced. The remainder of the body delivered without difficulty. The cord was double clamped and cut. Cord bloods The placenta was delivered manually. The uterus was cleared of all clots and debris. The uterine incision was repaired with #1 chromic in a running interlocking fashion, and a second layer the same suture was used for an imbricating layer. Hemostasis was achieved. The tubes and ovaries were examined and were found to be normal. The gutters were cleared of all clots and debris. The bladder flap was reapproximated using 2-0 Vicryl in a running fashion. The parietal peritoneum was closed using 2-0 Vicryl in a running fashion. The fascia was reapproximated using 0 Vicryl in a running fashion. The Subcutaneous layer was copiously irrigated with warm normal saline. 5 simple interrupted sutures of 3-0 Vicryl were placed to reapproximate the subcutaneous layer. The skin was closed with 4-0 Monocryl in a subcuticular fashion. Steri-Strips were placed. An Aquacel dressing was placed. The uterus was expressed of a small amount of old blood. Sponge, lap, and instrument counts were correct x-2. The patient tolerated the procedure well, and was taken to PACU in stable condition. Complications: none Post-operative Condition: stable Disposition: PACU Aftercare: routine postop
[2020-09-07 15:06] VITALS: BP 129/74; PULSE 95; RESP 21; O2SAT 100
[2020-09-07 15:09] VITALS: BP 132/74; PULSE 97; RESP 14; TEMP 36.1; O2SAT 100
[2020-09-07 15:10] VITALS: BP 141/81; PULSE 100; RESP 15; O2SAT 100
[2020-09-07 15:13] VITALS: BP 134/76; PULSE 100; RESP 16; TEMP 36.3; O2SAT 100
[2020-09-07] MEDS: ONDANSETRON 4 MG/2 ML INJ IV (18:20)
[2020-09-07] MEDS: KETOROLAC 30 MG/ML VIAL IV (23:31)
[2020-09-07] MEDS: LACTATED RINGERS 1,000 ML 100 ML IV (23:54)
[2020-09-08] MEDS: KETOROLAC 30 MG/ML VIAL IV (05:45)
[2020-09-08 06:04] LABS: Add Manual Diff / Slide Review NO; Basophils Absolute Auto 0 /uL (0-100); Basophils Percent Auto 0.3 % (0-2); Eosinophils Absolute Auto 0 /uL (0-450); Eosinophils Percent Auto 0.1 % (2-4); Hematocrit 25.8 % (36-46); Hemoglobin 8.3 g/dL (12.0-16.0); Lymphocytes Absolute Auto 1700 /uL (1100-4500); Lymphocytes Percent Auto 13.5 % (25-40); Mean Corpuscular HGB Conc 32.1 % (30-36); Mean Corpuscular Hemoglobin 24.8 PG (26-34); Mean Corpuscular Volume 77.1 fL (80-100); Monocytes Absolute Auto 1000 /uL (0-900); Monocytes Percent Auto 8.3 % (3-14); Neutrophils Absolute Auto 9700 /uL (1500-7000); Neutrophils Percent Auto 77.8 % (50-75); Platelet Count 293 X10^3/uL (150-400); Red Blood Cell Count 3.34 X10^6/uL (4.0-5.2); Red Cell Distribution Width 16.3 % (11.6-14.8); White Blood Cell Count 12.4 X10^3/uL (4.5-11.0)
[2020-09-08 06:23] LABS: Aspartate Aminotransferase 32 IU/L (14-36); BUN Creatinine Ratio 14.9 (6-22); Blood Urea Nitrogen 14 mg/dL (7-17); Calcium 8.6 mg/dL (8.4-10.2); Carbon Dioxide 21 mmol/L (22-32); Chloride 104 mmol/L (98-107); Estimated Glomerular Filt Rate > 60.0 mL/min (>60); Glucose 104 mg/dL (70-100); HEMOLYSIS < 15 (0-50); Potassium 4.1 mmol/L (3.4-5.1); Sodium 130 mmol/L (137-145); Uric Acid 8.7 mg/dL (2.5-6.2)
[2020-09-08] MEDS: DOCUSATE 250 MG CAPSULE PO (12:26)
[2020-09-08] MEDS: IBUPROFEN 600 MG TABLET PO ×2 (12:27→18:22)
[2020-09-08] MEDS: ACETAMINOPHEN 325 MG TABLET 650 MG PO ×2 (12:27→18:20)
[2020-09-08] MEDS: LANOLIN OINT 7 GM 1 APPLIC TOP (12:27)
[2020-09-08] MEDS: OXYCODONE IR 5 MG TABLET PO (18:22)
--- NOTE | 2020-09-08 18:27 | PM.OBPN.1 ---
Subjective - OB Subjective Patient comments: incisional pain baby status: doing well and nursing well feeding status: exclusively breast feeding Date Patient Seen: 09/08/20 Time Patient Seen: 18:27 Interval history: Postoperative day 1 primary section for twin gestation preeclampsia with mild features. Patient denies headaches, scotomata, epigastric pain. She is ambulatory. Urinating well. She has not passed gas yet. She is starting to have more incisional pain with being up and moving. Exam Vital Signs (past 8 hours): Blood pressure 138/89, pulse of 98, temperature 98.2? Oxygen Delivery Method Room Air Narrative Exam Narrative: Abdomen is soft, nontender. Uterus is firm, above you, appropriately tender. Dressing is clean, dry, intact. Mild lochia. Extremities with +2 edema, nontender. Objective Labs Result Diagrams: 09/08/20 05:50 09/08/20 05:50 Labs: Laboratory Results - last 24 hr 09/08/20 09/08/20 05:50 05:50 WBC 12.4 H RBC 3.34 L Hgb 8.3 L Hct 25.8 L MCV 77.1 L MCH 24.8 L MCHC 32.1 RDW 16.3 H Plt Count 293 Neut % (Auto) 77.8 H Lymph % (Auto) 13.5 L Garrett % (Auto) 8.3 Eos % (Auto) 0.1 L Baso % (Auto) 0.3 Neut # (Auto) 9700 H Lymph # (Auto) 1700 Garrett # (Auto) 1000 H Eos # (Auto) 0 Baso # (Auto) 0 Sodium 130 L Potassium 4.1 Chloride 104 Carbon Dioxide 21 L BUN 14 Creatinine 0.94 Estimated GFR > 60.0 BUN/Creatinine Ratio 14.9 Glucose 104 H Uric Acid 8.7 H Calcium 8.6 AST 32 Assessment & Plan Assessment and Plan (1) Delivery by section: Status: Acute (2) Antepartum mild pre-eclampsia: Status: Acute Plan day: 1 plan OB: routine postop care Comments: Monitor for signs symptoms of worsening preeclampsia. Time Spent With Patient Time: Total time spent is greater than 50% in coordination of care (as documented) at patient's floor/unit and/or counseling patient: Time with patient: less than 15 minutes
[2020-09-09] MEDS: IBUPROFEN 600 MG TABLET PO ×2 (00:31→08:25)
[2020-09-09] MEDS: ACETAMINOPHEN 325 MG TABLET 650 MG PO ×2 (00:32→08:25)
[2020-09-09] MEDS: OXYCODONE IR 5 MG TABLET PO ×2 (00:32→12:37)
[2020-09-09] MEDS: DOCUSATE 250 MG CAPSULE PO (08:25)
[2020-09-09 14:59] VITALS: BP 143/87; PULSE 88; RESP 17; TEMP 36.8
--- NOTE | 2020-09-09 16:24 | P.PNOB_ITS ---
Subjective - OB Subjective Patient comments: no complaints, pain well controlled, tolerating diet and flatus present baby status: doing well (X2) and nursing well (X2) [place] feeding status: exclusively breast feeding Date Patient Seen: 09/09/20 Time Patient Seen: 12:40 Interval history: Patient is a 30-year-old 1 para 1 postop day # 2 status post primary low-transverse section for preeclampsia with twins at 36-,1/7 weeks gestation. Pain is well controlled. going well. Bleeding tapering. Tolerating a diet. Ambulating independently. She has been able to void without the catheter. No headache or blurred vision. Exam Vital Signs (past 8 hours): - 09/09/20 14:59 Temperature 98.2 F Pulse Rate 88 Respiratory Rate 17 Blood Pressure 143/87 H Oxygen Delivery Method Room Air Narrative Exam Narrative: Generally: Patient walking around in room, no acute distress Lungs: Clear to auscultation bilaterally Cardiovascular: Regular rate and rhythm Abdomen: Soft. Appropriately tender. Incision: Clean dry and intact with Aquacel dressing Extremities: 1+ edema, 1+ DTRs, negative Homans Objective Labs Result Diagrams: 09/08/20 05:50 09/08/20 05:50 Assessment & Plan Assessment and Plan (1) Delivery by section: Problem details: Assessment: 30-year-old 1 para 1 postop day # 2 status post primary low-transverse section doing very well Status: Acute (2) Antepartum mild pre-eclampsia: Problem details: No signs of worsening preeclampsia Plan: Discharged home Follow-up 1 week for Aquacel dressing removal Signs and symptoms of preeclampsia reviewed Patient to call with fever, chills, redness or drainage around the incision, bleeding vaginally more than a pad in an hour, headache or blurred vision or right upper quadrant pain. Status: Acute Plan day: 2 plan OB: discharge home Time Spent With Patient Time: Total time spent is greater than 50% in coordination of care (as documented) at patient's floor/unit and/or counseling patient: Time with patient: 15-24 minutes
--- NOTE | 2020-09-11 08:44 | PM.OBDS.1 ---
Discharge Providers Provider Date of admission: 09/06/20 12:14 Discharge Date: 09/09/20 Primary care physician: Eleanor Lobato ND Consults: 09/07/20 15:39 Consult to Multi Site Leasing Consultant Routine Comment: Discharge provider: Brittany Mcgee MD Summary Hospital Course Date Patient Seen: 09/09/20 Time Patient Seen: 08:30 Discharge Diagnosis (1) Delivery by section: Status: Acute Problem Details: Assessment: 30-year-old 1 para 1 postop day # 2 status post primary low-transverse section doing very well (2) Antepartum mild pre-eclampsia: Status: Acute Problem Details: No signs of worsening preeclampsia Plan: Discharged home Follow-up 1 week for Aquacel dressing removal Signs and symptoms of preeclampsia reviewed Patient to call with fever, chills, redness or drainage around the incision, bleeding vaginally more than a pad in an hour, headache or blurred vision or right upper quadrant pain. Time Spent with Patient Time attestation: Total time spent providing and/or coordinating discharge services: Objective Labs Result Diagrams: 09/08/20 05:50 09/08/20 05:50 Exam Vital Signs (past 8 hours): Oxygen Delivery Method Room Air Discharge Plan Discharge Plan Patient Disposition: Home Provider Discharge Comment: Call with fever, chills, redness or drainage around the incision, or bleeding vaginally more than a pad in an hour. Call with headache, blurred vision, or right upper quadrant pain. Tylenol 650 mg every 6 hours Ibuprofen 600 mg every 6 hours Stool softener as needed Labetalol 100 mg twice a day Discharge orders & Medications Prescriptions: New oxycodone 5 mg tablet 5 mg PO Q4H PRN (Reason: pain) Qty: 20 RF: 0 docusate sodium [Colace] 100 mg capsule 100 mg PO BID Qty: 20 RF: 0 labetalol 100 mg tablet 100 mg PO BID Qty: 30 RF: 0 labetalol 100 mg tablet 100 mg PO BID Qty: 30 RF: 3 docusate sodium 250 mg capsule 250 mg PO DAILY Qty: 20 RF: 0 Continued prenat.vits,bassam,caz-ndpd-lidbi Tablet 1 tab PO DAILY RF: 0 cholecalciferol (vitamin D3) 75 mcg (3,000 unit) tablet 75 mcg PO DAILY RF: 0 Discontinued folic acid 400 mcg tablet 0.4 mg PO DAILY Qty: 1 RF: 2 pantoprazole [Protonix] 40 mg tablet,delayed release (DR/EC) 40 mg PO DAILY Qty: 30 RF: 2 Follow up/Referrals: Brittany Mcgee MD [Physician] - 1 Week (Aquacel removal and BP check appointment with Dr. Mcgee on 09/13/20 @1430. 6 week post appointment with Dr. Mcgee on 10/19/2020 @1500) Diet/Activity/Treatments Diet: Regular Skin/Wound/Dressing Care Report to your healthcare provider any signs of infection, such as:: chills, fever, increased pain, unusual drainage and unusual redness Dressing: Do not remove Visit Report/Discharge Packet Instructions: DI for , DI for Prescription Opioid Use Stand Alone Forms: Discharge: Care Discharge Data Primary Care Provider: Eleanor Lobato
--- NOTE | 2020-09-11 08:49 | P.OP_ITS ---
Operative Notes Procedure in detail: The patient was taken to the operating room where she was placed in the dorsal supine position with a leftward tilt. She was prepped and draped in the usual sterile fashion. A timeout was performed. After epidural analgesia was found to be adequate, a Pfannenstiel skin incision was made 2 fingerbreadths above the pubic symphysis and carried through to the underlying layer fascia. The fascia was nicked in the midline, and the incision extended bilaterally with the Green scissors. The superior aspect of the fascial incision was grasped with a Nancy clamps, elevated, and the underlying rectus muscles dissected off sharply and bluntly. Attention was then turned to the inferior aspect of this incision which in a similar fashion was grasped with a Nancy clamps, elevated, and the underlying rectus muscles dissected off sharply and bluntly. The rectus muscles were in the midline. The peritoneum was identified, grasped between 2 hemostats, and entered sharply with the Metzenbaum scissors. This incision was extended superiorly and inferiorly with good visualization of the bladder. The bladder blade was inserted. The vesicouterine peritoneum was identified, grasped with the pickup, and entered sharply with the Metzenbaum scissors. This incision was extended bilaterally, a nd the bladder flap was created digitally. The bladder blade was reinserted. The lower uterine segment was incised in a transverse fashion with the scalpel. Upon entering the amniotic sac there was moderate amount of thick meconium- stained amniotic fluid. The infant's head was delivered without difficulty. The nose and mouth were suctioned with bulb suction. The remainder of the body delivered without difficulty. The cord was double clamped and cut. The was handed off to waiting Peds and RT. The placenta was delivered manually. The uterus was cleared of all clots and debris. The uterine incision was repaired with #1 chromic in a running interlocking fashion, and a second layer the same suture was used for an imbricating layer. The stasis was achieved. The tubes and ovaries were examined and were found to be normal. The gutters were cleared of all clots and debris. The bladder flap was reapproximated using 2-0 Vicryl in a running fashion. The parietal peritoneum was closed using 2-0 Vicryl in a running fashion. The fascia was reapproximated using 0 Vicryl in a running fashion. Subcutaneous layer was copiously irrigated with warm normal saline. 5 simple interrupted sutures of 3-0 Vicryl were placed to reapproximate the subcutaneous layer. The skin was closed with 4-0 undyed Vicryl in a subcuticular fashion. Steri-Strips were placed. An Aquacell dressing was placed. The uterus was expressed of a small amount of old blood. Sponge, lap, and instrument counts were correct ?-2. The patient tolerated the procedure well, and was taken to PACU in stable condition.
--- NOTE | 2020-09-11 08:56 | PM.OBDS.1 ---
Discharge Providers Provider Date of admission: 09/06/20 12:14 Discharge Date: 09/09/20 Primary care physician: Eleanor Lobato ND Consults: 09/07/20 15:39 Consult to Medical Records Coordinator Routine Comment: Discharge provider: Brittany Mcgee MD Summary Hospital Course Date Patient Seen: 09/09/20 Time Patient Seen: 08:30 Diagnoses: 36 1/7 weeks gestation Preeclampsia Primary low-transverse section Hospital Course: Patient is a 30-year-old 1 para 1 who presented with preeclampsia to a routine visit. She was sent over to the Center. Her uric acid and protein were high. The next morning she underwent a primary low-transverse section without complication. Her postoperative course was unremarkable. was going well. Pain well controlled. She had voided without catheter. Tolerated a diet. She is discharged home Peripartum Data Delivery Method: Section Laceration Description: None Episiotomy description: None Procedures: Spinal anesthesia Primary low-transverse section complications: none [place] 1: Gender: Male Disposition of : home 2: Gender: Male Disposition of : home Discharge Diagnosis (1) Delivery by section: Status: Acute Problem Details: Assessment: 30-year-old 1 para 1 postop day # 2 status post primary low-transverse section doing very well (2) Antepartum mild pre-eclampsia: Status: Acute Problem Details: No signs of worsening preeclampsia Plan: Discharged home Follow-up 1 week for Aquacel dressing removal Signs and symptoms of preeclampsia reviewed Patient to call with fever, chills, redness or drainage around the incision, bleeding vaginally more than a pad in an hour, headache or blurred vision or right upper quadrant pain. Status at Discharge Cognitive/behavioral status at discharge: oriented Functional status at discharge: independent ambulation Overall status at discharge: patient is progressing back to baseline Time Spent with Patient Time attestation: Total time spent providing and/or coordinating discharge services: Time spent: Less than 30 minutes Objective Labs Result Diagrams: 09/08/20 05:50 09/08/20 05:50 Exam Vital Signs (past 8 hours): Oxygen Delivery Method Room Air Discharge Plan Discharge Plan Patient Disposition: Home Provider Discharge Comment: Call with fever, chills, redness or drainage around the incision, or bleeding vaginally more than a pad in an hour. Call with headache, blurred vision, or right upper quadrant pain. Tylenol 650 mg every 6 hours Ibuprofen 600 mg every 6 hours Stool softener as needed Labetalol 100 mg twice a day Discharge orders & Medications Prescriptions: New oxycodone 5 mg tablet 5 mg PO Q4H PRN (Reason: pain) Qty: 20 RF: 0 docusate sodium [Colace] 100 mg capsule 100 mg PO BID Qty: 20 RF: 0 labetalol 100 mg tablet 100 mg PO BID Qty: 30 RF: 0 labetalol 100 mg tablet 100 mg PO BID Qty: 30 RF: 3 docusate sodium 250 mg capsule 250 mg PO DAILY Qty: 20 RF: 0 Continued prenat.vits,bassam,uwu-kldl-pouys Tablet 1 tab PO DAILY RF: 0 cholecalciferol (vitamin D3) 75 mcg (3,000 unit) tablet 75 mcg PO DAILY RF: 0 Discontinued folic acid 400 mcg tablet 0.4 mg PO DAILY Qty: 1 RF: 2 pantoprazole [Protonix] 40 mg tablet,delayed release (DR/EC) 40 mg PO DAILY Qty: 30 RF: 2 Follow up/Referrals: Brittany Mcgee MD [Physician] - 1 Week (Aquacel removal and BP check appointment with Dr. Mcgee on 09/13/20 @1430. 6 week post appointment with Dr. Mcgee on 10/19/2020 @1500) Diet/Activity/Treatments Diet: Regular Skin/Wound/Dressing Care Report to your healthcare provider any signs of infection, such as:: chills, fever, increased pain, unusual drainage and unusual redness Dressing: Do not remove Visit Report/Discharge Packet Instructions: DI for , DI for Prescription Opioid Use Stand Alone Forms: Discharge: Care Discharge Data Primary Care Provider: Eleanor Lobato
== END 2020-09-09 17:00 | disposition home or self-care (01) | DRG 788 ==
PROVIDERS: Admitting Provider Obstetrics & Gynecology; PCP Naturopath; Referring Provider Obstetrics & Gynecology; Visit Provider Obstetrics & Gynecology
PROC: 10D00Z1 Extraction of Products of Conception, Low, Open Approach (ICD-10-PCS; CPT 59514; principal; 2020-09-07 13:30)
DX: O14.04 Mild to moderate pre-eclampsia, complicating childbirth (principal); O99.214 Obesity complicating childbirth; E66.01 Morbid (severe) obesity due to excess calories; Z3A.36 36 weeks gestation of pregnancy; Z37.2 Twins, both liveborn; O60.14X0 Preterm labor third trimester with preterm delivery third trimester, not applicable or unspecified; O30.043 Twin pregnancy, dichorionic/diamniotic, third trimester; Z20.822 Contact with and (suspected) exposure to COVID-19
CPT/HCPCS: 36415; 59025; 59050; 59510; 59514; 80048; 82570; 84156; 84450; 84550; 85025; 87635; C9803; G0378; G0379; J0690; J0702; J1885; J2274; J2405; J2590

== ENCOUNTER 2020-09-13 01:54 | Observation (INO) | payer OTHER, SELFPAY ==
[2020-09-13 02:31] LABS: Add Manual Diff / Slide Review NO; Basophils Absolute Auto 0 /uL (0-100); Basophils Percent Auto 0.6 % (0-2); Eosinophils Absolute Auto 100 /uL (0-450); Eosinophils Percent Auto 1.4 % (2-4); Hematocrit 24.9 % (36-46); Hemoglobin 7.9 g/dL (12.0-16.0); Lymphocytes Absolute Auto 1800 /uL (1100-4500); Lymphocytes Percent Auto 25.7 % (25-40); Mean Corpuscular HGB Conc 31.7 % (30-36); Mean Corpuscular Hemoglobin 24.4 PG (26-34); Mean Corpuscular Volume 77.2 fL (80-100); Monocytes Absolute Auto 600 /uL (0-900); Monocytes Percent Auto 8.7 % (3-14); Neutrophils Absolute Auto 4300 /uL (1500-7000); Neutrophils Percent Auto 63.6 % (50-75); Platelet Count 313 X10^3/uL (150-400); Red Blood Cell Count 3.22 X10^6/uL (4.0-5.2); Red Cell Distribution Width 16.5 % (11.6-14.8); White Blood Cell Count 6.8 X10^3/uL (4.5-11.0)
[2020-09-13 02:38] LABS: Aspartate Aminotransferase 49 IU/L (14-36); BUN Creatinine Ratio 17.9 (6-22); Blood Urea Nitrogen 10 mg/dL (7-17); Estimated Glomerular Filt Rate > 60.0 mL/min (>60); Uric Acid 7.8 mg/dL (2.5-6.2)
--- NOTE | 2020-09-13 03:41 | PC.NURSE ---
post patient with concerns of increased BP's she had taken 156/94, 154/101 , head ache and increased abdominal pain, called operations liaison MD. patient was sent to center for further evaluation of blood pressures and have some labs drawn. patient arrived with twins and significant other. patients blood pressures were taken q 15 minutes times 5. 145/86, 145/82, 144/75, 125/64, 132/67. when asked about abdominal pain she said it was more uterine cramping, and her head ache had gone away after taking some Ibuprofen. Lab results called to Dr Dawson, also reported on blood pressures and patients current status. orders to increase labetalol to 200 mg two times a day. increase rest periods. patient has appointment with Dr Mcgee this afternoon.\ discharge instructions given and patient was discharged.
== END 2020-09-13 04:00 | disposition home or self-care (01) ==
PROVIDERS: Admitting Provider Obstetrics & Gynecology; PCP Naturopath; Referring Provider Obstetrics & Gynecology; Visit Provider Obstetrics & Gynecology
DX: O90.89 Other complications of the puerperium, not elsewhere classified (principal); R03.0 Elevated blood-pressure reading, without diagnosis of hypertension; R51.9 Headache, unspecified; R10.84 Generalized abdominal pain; Z87.59 Personal history of other complications of pregnancy, childbirth and the puerperium
CPT/HCPCS: 36415; 84450; 84550; 85025; G0378; G0379

== ENCOUNTER → 2020-09-14 12:43 | Outpatient (CLI) | payer OTHER, SELFPAY ==
[2020-09-14 13:13] LABS: Add Manual Diff / Slide Review NO; Basophils Absolute Auto 0 /uL (0-100); Basophils Percent Auto 0.5 % (0-2); Eosinophils Absolute Auto 100 /uL (0-450); Eosinophils Percent Auto 1.5 % (2-4); Hematocrit 26.9 % (36-46); Hemoglobin 8.6 g/dL (12.0-16.0); Lymphocytes Absolute Auto 1400 /uL (1100-4500); Lymphocytes Percent Auto 21.8 % (25-40); Mean Corpuscular Hemoglobin 24.8 PG (26-34); Mean Corpuscular Volume 77.4 fL (80-100); Monocytes Absolute Auto 500 /uL (0-900); Monocytes Percent Auto 7.7 % (3-14); Neutrophils Absolute Auto 4300 /uL (1500-7000); Neutrophils Percent Auto 68.5 % (50-75); Platelet Count 309 X10^3/uL (150-400); Red Blood Cell Count 3.47 X10^6/uL (4.0-5.2); Red Cell Distribution Width 16.7 % (11.6-14.8); White Blood Cell Count 6.2 X10^3/uL (4.5-11.0)
[2020-09-14 13:28] LABS: Alanine Aminotransferase 27 IU/L (<35); Aspartate Aminotransferase 44 IU/L (14-36); BUN Creatinine Ratio 13.7 (6-22); Blood Urea Nitrogen 7 mg/dL (7-17); Estimated Glomerular Filt Rate > 60.0 mL/min (>60); Uric Acid 7.3 mg/dL (2.5-6.2)
== END ==
PROVIDERS: PCP Naturopath; Referring Provider Obstetrics & Gynecology; Visit Provider Obstetrics & Gynecology
DX: O14.00 Mild to moderate pre-eclampsia, unspecified trimester (principal)
CPT/HCPCS: 36415; 82565; 84450; 84460; 84520; 84550; 85025

== ENCOUNTER → 2021-01-12 13:46 | Outpatient (CLI) | payer OTHER, SELFPAY ==
[2021-01-12 14:16] LABS: COVID19 -Nasal RAPID Negative (Negative)
== END ==
PROVIDERS: PCP Naturopath; Visit Provider Physician Assistant
DX: J31.2 Chronic pharyngitis (principal); Z20.822 Contact with and (suspected) exposure to COVID-19
CPT/HCPCS: 87070; 87635

== ENCOUNTER 2022-11-18 04:49 | Emergency (ER) | payer OTHER, SELFPAY ==
[2022-11-18] VITALS (11 sets, daily range): BP systolic 116–147; BP diastolic 70–84; PULSE 60–88; RESP 18–25; TEMP 36.4; O2SAT 94–100; BMI 43.0
--- NOTE | 2022-11-18 05:04 | ED_ITS ---
HPI - Back Pain/Injury <Kalyani Brown DO - Last Filed: 11/19/22 00:12> General Chief Complaint: Back Pain/Injury Stated Complaint: Back pain, chest pain Time Seen by Provider: 11/18/22 05:00 Source: patient Mode of arrival: Ambulatory Limitations: no limitations History of Present Illness HPI Narrative: This is a 32-year-old female with no reported medical issues who after work this evening started getting some midthoracic back pain round the level of her bra line and radiating upwards she drove home and it increased when she laid down for bed and wrapped around to the front on both sides. 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 She does not have back pain regularly. She states she took ibuprofen at home. Pain has since received in back to the thoracic area. It is not worse with movement, not worse with deep inhalation. Patient denies fevers chills cold cough or congestion. No chest pain anteriorly at this time. She felt a little short of breath when it initially happened and wrapped around to front. No nausea. No vomiting. No diarrhea or constipation, no other GI or urinary symptoms. No new swelling in extremities. Patient states no daily medications. No prior surgeries. No known drug allergies. She does have a Nexplanon. No tobacco, occasional alcohol, no illicit or recreational drugs. Dad had an HI at age 61 but she states he smoked and was generally healthy. No other known cardiac history. Related Data Home Medications Medication Instructions Recorded Confirmed No Known Home Medications 08/30/22 08/30/22 Allergies Allergy/AdvReac Type Severity Reaction Status Date / Time No Known Drug Allergies Allergy Verified 08/30/22 16:02 Review of Systems <Kalyani Brown DO - Last Filed: 11/19/22 00:12> Review of Systems ROS Unobtainable: All systems reviewed & are unremarkable except as noted in HPI and below Patient History <Kalyani Brown DO - Last Filed: 11/19/22 00:12> Medical History Anxiety Dichorionic diamniotic twin (~02/2020) Ingrown toenail of both feet (~2011) Surgical History S/P matrixectomy of toe (~2011) Family History Mother Anemia Gallbladder disease Autoimmune hemolytic anemia Father Myocardial infarction Heavy smoker Optic nerve disorder Non-arteritic AION (anterior ischemic optic neuropathy) Grandmother Diabetes mellitus CVA (cerebral vascular accident) Hypertension Grandfather No problems noted. Grandmother Myocardial infarction Grandfather No problems noted. Family/Other Drug abuse Hemorrhagic stroke Family/Other Diabetes mellitus Family/Other Family history of identical twins Social History marital status: unmarried,living together household members: significant other lives independently: Yes pets and animals: Yes (X 2 dogs) education level: college occupational status: employed current occupational exposures/hazards: No special alli needs: No Smoking Status: Never smoker second hand exposure: No alcohol intake: former substance use type: does not use and marijuana Smoking Status: Never smoker alcohol intake frequency: a few times a month Substance Use Type: does not use Exam <Kalyani Brown DO - Last Filed: 11/19/22 00:12> Narrative Exam Narrative: GENERAL: Alert and oriented x three, female in mild distress HEENT: Head normocephalic, atraumatic, EOMI, pupils reactive, face symmetric, moist mucous membranes NECK: Supple, full range of motion CARDIOVASCULAR: Regular rate and rhythm without murmurs, rubs or gallops. RESPIRATORY: Breath sounds equal bilaterally, no wheezes rales or rhonchi. ABDOMEN: Soft, nontender. Normoactive bowel sounds all 4 quadrants. No guarding or rebound, rigidity, no mass : No CVA tenderness BACK: No cervical, thoracic or lumbar vertebral point tenderness. No reproducible pain on examination of back. Patient has normal range of motion. Patient's gait is normal. EXTREMITIES: Normal range of motion, no clubbing or edema. Neurovascularly intact NEUROLOGICAL: Cranial nerves II through XII grossly intact. Moving all extremities SKIN: Warm, dry, no petechiae, no rashes or lesions. Initial Vital Signs Initial Vital Signs: Vital Signs Temperature 97.5 F L 11/18/22 04:54 Pulse Rate 86 11/18/22 04:54 Respiratory Rate 18 11/18/22 04:54 Blood Pressure 136/84 11/18/22 04:54 Pulse Oximetry 97 11/18/22 04:54 Oxygen Delivery Method Room Air 11/18/22 04:54 <Darrell Mueller DO - Last Filed: 11/18/22 09:42> Initial Vital Signs Initial Vital Signs: Vital Signs Temperature 97.5 F L 11/18/22 04:54 Pulse Rate 86 11/18/22 04:54 Respiratory Rate 18 11/18/22 04:54 Blood Pressure 136/84 11/18/22 04:54 Pulse Oximetry 97 11/18/22 04:54 Oxygen Delivery Method Room Air 11/18/22 04:54 Scores <Kalyani Brown DO - Last Filed: 11/19/22 00:12> HEART Score Heart Score Total: 2 <Darrell Mueller - Last Filed: 11/18/22 09:42> HEART Score Heart Score history: Slightly Suspicious Heart Score EKG: Non-Specific repolarization disturbance Heart Score Age: < 45 years old Heart Score risk factors: 1-2 risk factors Heart Score troponin: < or = to normal limit Heart Score Total: 2 Course <Kalyani Brown DO - Last Filed: 11/19/22 00:12> Orders Ordered: ED Orders 11/18/22 05:19 XR chest 1V Stat EKG-12 Lead Stat 11/18/22 05:30 D Dimer Stat 11/18/22 05:36 Complete Blood Count AUTO DIFF Stat Comprehensive Metabolic Panel Stat Lipase Stat Troponin & CK Cardiac Panel Stat 11/18/22 07:50 Trop I [Troponin I] Stat 11/18/22 08:27 CT angio chest PE protocol Stat Vital Signs Vital signs: Vital Signs - 8 hr 11/18/22 04:54 11/18/22 05:46 11/18/22 06:00 Temperature 97.5 F L Pulse Rate 86 79 65 Respiratory Rate 18 25 H 22 Blood Pressure 136/84 Pulse Oximetry 97 97 96 Oxygen Delivery Method Room Air 11/18/22 06:01 11/18/22 06:01 11/18/22 06:30 Temperature Pulse Rate 65 65 Respiratory Rate 22 18 Blood Pressure 126/70 Pulse Oximetry 97 96 Oxygen Delivery Method 11/18/22 07:00 11/18/22 07:00 11/18/22 07:30 Temperature Pulse Rate 66 Respiratory Rate Blood Pressure 122/72 116/71 Pulse Oximetry 98 Oxygen Delivery Method Room Air 11/18/22 07:30 11/18/22 08:00 11/18/22 08:00 Temperature Pulse Rate 63 60 Respiratory Rate 21 20 Blood Pressure 118/74 Pulse Oximetry 97 99 Oxygen Delivery Method Room Air Room Air 11/18/22 08:52 11/18/22 09:00 11/18/22 09:40 Temperature Pulse Rate 85 78 88 Respiratory Rate 25 H 20 Blood Pressure 147/84 H Pulse Oximetry 94 98 100 Oxygen Delivery Method Room Air Room Air <Darrell Mueller, DO - Last Filed: 11/18/22 09:42> Orders Ordered: ED Orders 11/18/22 05:19 XR chest 1V Stat EKG-12 Lead Stat 11/18/22 05:30 D Dimer Stat 11/18/22 05:36 Complete Blood Count AUTO DIFF Stat Comprehensive Metabolic Panel Stat Lipase Stat Troponin & CK Cardiac Panel Stat 11/18/22 07:50 Trop I [Troponin I] Stat 11/18/22 08:27 CT angio chest PE protocol Stat Vital Signs Vital signs: Vital Signs - 8 hr 11/18/22 04:54 11/18/22 05:46 11/18/22 06:00 Temperature 97.5 F L Pulse Rate 86 79 65 Respiratory Rate 18 25 H 22 Blood Pressure 136/84 Pulse Oximetry 97 97 96 Oxygen Delivery Method Room Air 11/18/22 06:01 11/18/22 06:01 11/18/22 06:30 Temperature Pulse Rate 65 65 Respiratory Rate 22 18 Blood Pressure 126/70 Pulse Oximetry 97 96 Oxygen Delivery Method 11/18/22 07:00 11/18/22 07:00 11/18/22 07:30 Temperature Pulse Rate 66 Respiratory Rate Blood Pressure 122/72 116/71 Pulse Oximetry 98 Oxygen Delivery Method Room Air 11/18/22 07:30 11/18/22 08:00 11/18/22 08:00 Temperature Pulse Rate 63 60 Respiratory Rate 21 20 Blood Pressure 118/74 Pulse Oximetry 97 99 Oxygen Delivery Method Room Air Room Air 11/18/22 08:52 11/18/22 09:00 11/18/22 09:40 Temperature Pulse Rate 85 78 88 Respiratory Rate 25 H 20 Blood Pressure 147/84 H Pulse Oximetry 94 98 100 Oxygen Delivery Method Room Air Room Air [facility] Back Pain/Injury <Kalyani Brown, DO - Last Filed: 11/19/22 00:12> Lab Data 11/18/22 05:36 11/18/22 05:36 Labs: Lab Results 11/18/22 11/18/22 11/18/22 Range/Units 05:30 05:36 05:36 WBC 8.6 (4.5-11.0) X10^3/uL RBC 4.78 (4.0-5.2) X10^6/uL Hgb 14.0 (12.0-16.0) g/dL Hct 39.8 (36-46) % MCV 83.3 (80-100) fL MCH 29.4 (26-34) PG MCHC 35.3 (30-36) % RDW 14.5 (11.6-14.8) % Plt Count 308 (150-400) X10^3/uL Neut % (Auto) 65.9 (50-75) % Lymph % (Auto) 26.5 (25-40) % [place] % (Auto) 5.7 (3-14) % Eos % (Auto) 1.5 L (2-4) % Baso % (Auto) 0.4 (0-2) % Neut # (Auto) 5700 (1937-4492) /uL Lymph # (Auto) 2300 (2046-4290) /uL [place] # (Auto) 500 (0-900) /uL Eos # (Auto) 100 (0-450) /uL Baso # (Auto) 0 (0-100) /uL D-Dimer 711 H (<500) ng/ml Sodium 137 (137-145) mmol/L Potassium 3.6 (3.4-5.1) mmol/L Chloride 104 (98-107) mmol/L Carbon Dioxide 24 (22-32) mmol/L BUN 12 (7-17) mg/dL Creatinine 0.81 (0.52-1.04) mg/dL Estimated GFR > 60 (>60) mL/min BUN/Creatinine Ratio 14.8 (6-22) Glucose 111 H (70-100) mg/dL Calcium 9.1 (8.4-10.2) mg/dL Total Bilirubin 0.4 (0.2-1.3) mg/dL AST 23 (14-36) IU/L ALT 21 (<35) IU/L Alkaline Phosphatase 94 (38-126) U/L Total Creatine Kinase 27 L (30-135) U/L Troponin I < 0.012 (0.01-0.034) ng/mL Total Protein 7.9 (6.3-8.2) g/dL Albumin 4.3 (3.5-5.0) g/dL Globulin 3.6 (1.7-4.1) g/dL Albumin/Globulin Ratio 1.2 (1.0-2.8) Lipase 119 (23-300) U/L 11/18/22 Range/Units 07:50 WBC (4.5-11.0) X10^3/uL RBC (4.0-5.2) X10^6/uL Hgb (12.0-16.0) g/dL Hct (36-46) % MCV (80-100) fL MCH (26-34) PG MCHC (30-36) % RDW (11.6-14.8) % Plt Count (150-400) X10^3/uL Neut % (Auto) (50-75) % Lymph % (Auto) (25-40) % [place] % (Auto) (3-14) % Eos % (Auto) (2-4) % Baso % (Auto) (0-2) % Neut # (Auto) (9956-8332) /uL Lymph # (Auto) (6004-7026) /uL [place] # (Auto) (0-900) /uL Eos # (Auto) (0-450) /uL Baso # (Auto) (0-100) /uL D-Dimer (<500) ng/ml Sodium (137-145) mmol/L Potassium (3.4-5.1) mmol/L Chloride (98-107) mmol/L Carbon Dioxide (22-32) mmol/L BUN (7-17) mg/dL Creatinine (0.52-1.04) mg/dL Estimated GFR (>60) mL/min BUN/Creatinine Ratio (6-22) Glucose (70-100) mg/dL Calcium (8.4-10.2) mg/dL Total Bilirubin (0.2-1.3) mg/dL AST (14-36) IU/L ALT (<35) IU/L Alkaline Phosphatase (38-126) U/L Total Creatine Kinase (30-135) U/L Troponin I < 0.012 (0.01-0.034) ng/mL Total Protein (6.3-8.2) g/dL Albumin (3.5-5.0) g/dL Globulin (1.7-4.1) g/dL Albumin/Globulin Ratio (1.0-2.8) Lipase (23-300) U/L Point of Care Testing Test Results Negative Urine Dip Bedside Urine Glucose Negative Bedside Urine Bilirubin - Negative Bedside Urine Ketone - Negative Urine Specific [place] 1.020 Bedside Urine Occult Blood - Negative Bedside Urine pH 6.0 Bedside Urine Protein - Negative Bedside Urine Urobilinogen - Negative Bedside Urine Nitrite - Negative Bedside Urine Leukocytes - Negative Esterase Imaging Data Chest x-ray: Radiologist's Impression: No active cardiopulmonary disease demonstrated, cardiomediastinal silhouette is unremarkable. Lungs are well aerated and clear. No mass, infiltrate or atelectasis is apparent. No pleural effusion is suspected. The osseous structures are unremarkable. ECG Data Attestation: I personally reviewed and interpreted this ECG as follows: Prior ECG tracings: not available for review Interpretation: Sinus rhythm rate of 70, FL 152 QRS 80 QTC 414. T-wave inverted in lead 3, AVF. Nonspecific change. No priors for comparison. MDM Narrative Medical decision making narrative: This is a 32-year-old female who presents with complaint of thoracic back pain that then radiated anteriorly. Patient states it has since receded back towards her back. 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 Was worsened when she laid flat in bed. She did take ibuprofen prior to arrival but she states pain has improved quite a bit. Patient and I discussed suspect thoracic is her main cause she has some family history with her dad having an HI 60s, no other known cardiac risk factors. After discussion plan for labs, EKG and chest x-ray were obtained. Labs show no acute changes including CBC, CMP, troponin, lipase. EKG does have some nonspecific change with T-wave inverted in lead 3 and AVF. Discussed with patient recommend repeat 2 hour troponin. Patient signed out to Dr. Mueller while awaiting repeat troponin/EKG. Patient continues to be asymptomatic currently. <Darrell Mueller, DO - Last Filed: 11/18/22 09:42> Lab Data Labs: Lab Results 11/18/22 11/18/22 11/18/22 Range/Units 05:30 05:36 05:36 WBC 8.6 (4.5-11.0) X10^3/uL RBC 4.78 (4.0-5.2) X10^6/uL Hgb 14.0 (12.0-16.0) g/dL Hct 39.8 (36-46) % MCV 83.3 (80-100) fL MCH 29.4 (26-34) PG MCHC 35.3 (30-36) % RDW 14.5 (11.6-14.8) % Plt Count 308 (150-400) X10^3/uL Neut % (Auto) 65.9 (50-75) % Lymph % (Auto) 26.5 (25-40) % [place] % (Auto) 5.7 (3-14) % Eos % (Auto) 1.5 L (2-4) % Baso % (Auto) 0.4 (0-2) % Neut # (Auto) 5700 (3406-8270) /uL Lymph # (Auto) 2300 (9094-5264) /uL [place] # (Auto) 500 (0-900) /uL Eos # (Auto) 100 (0-450) /uL Baso # (Auto) 0 (0-100) /uL D-Dimer 711 H (<500) ng/ml Sodium 137 (137-145) mmol/L Potassium 3.6 (3.4-5.1) mmol/L Chloride 104 (98-107) mmol/L Carbon Dioxide 24 (22-32) mmol/L BUN 12 (7-17) mg/dL Creatinine 0.81 (0.52-1.04) mg/dL Estimated GFR > 60 (>60) mL/min BUN/Creatinine Ratio 14.8 (6-22) Glucose 111 H (70-100) mg/dL Calcium 9.1 (8.4-10.2) mg/dL Total Bilirubin 0.4 (0.2-1.3) mg/dL AST 23 (14-36) IU/L ALT 21 (<35) IU/L Alkaline Phosphatase 94 (38-126) U/L Total Creatine Kinase 27 L (30-135) U/L Troponin I < 0.012 (0.01-0.034) ng/mL Total Protein 7.9 (6.3-8.2) g/dL Albumin 4.3 (3.5-5.0) g/dL Globulin 3.6 (1.7-4.1) g/dL Albumin/Globulin Ratio 1.2 (1.0-2.8) Lipase 119 (23-300) U/L 11/18/22 Range/Units 07:50 WBC (4.5-11.0) X10^3/uL RBC (4.0-5.2) X10^6/uL Hgb (12.0-16.0) g/dL Hct (36-46) % MCV (80-100) fL MCH (26-34) PG MCHC (30-36) % RDW (11.6-14.8) % Plt Count (150-400) X10^3/uL Neut % (Auto) (50-75) % Lymph % (Auto) (25-40) % [place] % (Auto) (3-14) % Eos % (Auto) (2-4) % Baso % (Auto) (0-2) % Neut # (Auto) (2774-3850) /uL Lymph # (Auto) (0588-6196) /uL [place] # (Auto) (0-900) /uL Eos # (Auto) (0-450) /uL Baso # (Auto) (0-100) /uL D-Dimer (<500) ng/ml Sodium (137-145) mmol/L Potassium (3.4-5.1) mmol/L Chloride (98-107) mmol/L Carbon Dioxide (22-32) mmol/L BUN (7-17) mg/dL Creatinine (0.52-1.04) mg/dL Estimated GFR (>60) mL/min BUN/Creatinine Ratio (6-22) Glucose (70-100) mg/dL Calcium (8.4-10.2) mg/dL Total Bilirubin (0.2-1.3) mg/dL AST (14-36) IU/L ALT (<35) IU/L Alkaline Phosphatase (38-126) U/L Total Creatine Kinase (30-135) U/L Troponin I < 0.012 (0.01-0.034) ng/mL Total Protein (6.3-8.2) g/dL Albumin (3.5-5.0) g/dL Globulin (1.7-4.1) g/dL Albumin/Globulin Ratio (1.0-2.8) Lipase (23-300) U/L Point of Care Testing Test Results Negative Urine Dip Bedside Urine Glucose Negative Bedside Urine Bilirubin - Negative Bedside Urine Ketone - Negative Urine Specific [place] 1.020 Bedside Urine Occult Blood - Negative Bedside Urine pH 6.0 Bedside Urine Protein - Negative Bedside Urine Urobilinogen - Negative Bedside Urine Nitrite - Negative Bedside Urine Leukocytes - Negative Esterase MDM Narrative Medical decision making narrative: This is a 32-year-old female who presents with complaint of thoracic back pain that then radiated anteriorly. Patient states it has since receded back towards her back. 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 Was worsened when she laid flat in bed. She did take ibuprofen prior to arrival but she states pain has improved quite a bit. Patient and I discussed suspect thoracic is her main cause she has some family history with her dad having an HI 60s, no other known cardiac risk factors. After discussion plan for labs, EKG and chest x-ray were obtained. Labs show no acute changes i ncluding CBC, CMP, troponin, lipase. EKG does have some nonspecific change with T-wave inverted in lead 3 and AVF. Discussed with patient recommend repeat 2 hour troponin. Patient signed out to Dr. Mueller while awaiting repeat troponin/EKG. Patient continues to be asymptomatic currently. [0700] (Ervin) Patient received in sign out from [Stephanie]. I have reviewed the clinical course and performed an independent history and physical exam. EKG remains unchanged. only subtle T wave inversion in III. second trop pending. She remains asymptomatic. Dimer added. CC: 32-year-old female with chest and back pain Complicating co-morbidities: BMI 43, sedentary Data collected from: Patient Medical records reviewed: Prior notes reviewed in our EMR Differential considered, but not limited to: Myocardial infarction versus pulmonary embolism versus musculoskeletal versus pancreas versus gallbladder versus other Exam documented above, pertinent findings include: Heart rate regular, lungs clear, abdomen is soft, no reproducible back pain Lab Test results independently reviewed as above. Pertinent findings: Electrolytes and LFTs within normal, troponin x2 negative Independently reviewed EKG as above Imaging studies independently reviewed: CTA of chest without evidence of p ulmonary embolism or other significant finding Discussion: Patient with relatively sudden onset pain underneath her ribs and some involvement her back, low risk for cardiac disease, heart score low, troponin x2 negative, no exertional symptoms and no cardiac equivalent. Pulmonary embolism considered given use of control, sedentary job and elevated D-dimer, thankfully CT angiogram is negative. Pancreas and gallbladder considered but thought unlikely given lack of ongoing or reproducible pain and reassuring labs. Disposition: see below, along with detailed discharge instructions that have been reviewed with patient as well as indications for ED re-evaluation and additional outpatient follow up Discharge Plan Departure Patient Disposition: Home Clinical Impression: Back pain, thoracic Instructions: DI for Back Spasm Activity Restrictions/Additional Instructions: *You have been diagnosed with [chest and thoracic back pain. As we discussed your history and physical exam are reassuring. Labs and EKGs as well as imaging demonstrate no sign of heart attack, blood clot or other significant diagnosis that requires any immediate intervention] *What to do: *Please continue to take your regular medications as directed. *Please follow up with your primary care provider in 2-3 days, call for an appointment. Let them know you were seen in the Emergency Department and that we ask that you be seen in follow up. We will electronically transmit a record of today's note if your PCP is in our system *If you do not have a primary care provider please contact the [facility] Resource line at [phone]. They will ask some questions about your medical history and help get you set up with a doctor in the community. *Return to Emergency Department if you should have any new, worsening or concerning symptoms, such as [fever greater than 101 F, shaking chills, worsening pain, persistent vomiting or other bothersome symptoms] Prescriptions: No Action No Known Home Medications Referrals: Eleanor Lobato ND [Primary Care Provider] - Stand Alone Forms: Patient Portal/API
--- NOTE | 2022-11-18 05:19 | DI.RAD.S_ITS ---
PROCEDURE: XR CHEST 1V INDICATIONS: chest pain TECHNIQUE: One view of the chest was acquired. COMPARISON: None. FINDINGS: Surgical changes and devices: None. Lungs and pleura: Lungs are clear. No pleural effusions or pneumothorax. Mediastinum: Mediastinal contours appear normal. Heart size is normal. Bones and chest wall: No suspicious bony lesions. Overlying soft tissues appear unremarkable. IMPRESSION: No acute cardiopulmonary findings Approved by: Randy Guidry M.D. on 11/18/2022 at 9:37
[2022-11-18 05:44] LABS: Add Manual Diff / Slide Review NO; Basophils Absolute Auto 0 /uL (0-100); Basophils Percent Auto 0.4 % (0-2); Eosinophils Absolute Auto 100 /uL (0-450); Eosinophils Percent Auto 1.5 % (2-4); Hematocrit 39.8 % (36-46); Lymphocytes Absolute Auto 2300 /uL (1100-4500); Lymphocytes Percent Auto 26.5 % (25-40); Mean Corpuscular HGB Conc 35.3 % (30-36); Mean Corpuscular Hemoglobin 29.4 PG (26-34); Mean Corpuscular Volume 83.3 fL (80-100); Monocytes Absolute Auto 500 /uL (0-900); Monocytes Percent Auto 5.7 % (3-14); Neutrophils Absolute Auto 5700 /uL (1500-7000); Neutrophils Percent Auto 65.9 % (50-75); Platelet Count 308 X10^3/uL (150-400); Red Blood Cell Count 4.78 X10^6/uL (4.0-5.2); Red Cell Distribution Width 14.5 % (11.6-14.8); White Blood Cell Count 8.6 X10^3/uL (4.5-11.0)
[2022-11-18 05:53] LABS: Alanine Aminotransferase 21 IU/L (<35); Albumin 4.3 g/dL (3.5-5.0); Albumin Globulin Ratio 1.2 (1.0-2.8); Alkaline Phosphatase 94 U/L (38-126); Aspartate Aminotransferase 23 IU/L (14-36); BUN Creatinine Ratio 14.8 (6-22); Bilirubin Total 0.4 mg/dL (0.2-1.3); Blood Urea Nitrogen 12 mg/dL (7-17); Calcium 9.1 mg/dL (8.4-10.2); Carbon Dioxide 24 mmol/L (22-32); Chloride 104 mmol/L (98-107); Creatine Kinase 27 U/L (30-135); Estimated Glomerular Filt Rate > 60 mL/min (>60); Globulin 3.6 g/dL (1.7-4.1); Glucose 111 mg/dL (70-100); HEMOLYSIS < 15 (0-50); Lipase 119 U/L (23-300); Potassium 3.6 mmol/L (3.4-5.1); Sodium 137 mmol/L (137-145); Total Protein 7.9 g/dL (6.3-8.2)
[2022-11-18 06:05] LABS: Troponin I < 0.012 ng/mL (0.01-0.034)
--- NOTE | 2022-11-18 07:56 | PC.NURSE ---
Patient denies having any chest pain currently, but does have back pain present.
[2022-11-18 08:20] LABS: D Dimer 711 ng/ml (<500)
[2022-11-18 08:27] LABS: Troponin I < 0.012 ng/mL (0.01-0.034)
--- NOTE | 2022-11-18 08:27 | DI.CT.S_ITS ---
PROCEDURE: CT ANGIO CHEST PE PROTOCOL INDICATIONS: chest pain, radiates to back, control, sedentary, DIME TECHNIQUE: After the administration of intravenous contrast, 2 mm thick sections acquired from the pulmonary apices to the posterior costophrenic angles. MIP reformats of the arterial vasculature were utilized. For radiation dose reduction, the following was used: automated exposure control, adjustment of mA and/or kV according to patient size. COMPARISON: None. FINDINGS: Image quality: Study is limited by bolus timing Pulmonary arteries: No evidence of central pulmonary embolism. Evaluation the peripheral vessels limited by bolus timing. Pulmonary artery caliber Lungs and pleura: Lungs are clear. No pleural effusions or pneumothorax. Central and peripheral airways are patent. Mediastinum: Heart size is normal, without pericardial effusion. No mediastinal or hilar adenopathy. Thoracic aorta is normal in caliber and enhancement. Esophagus is normal in caliber, without hiatal hernia. Bones and chest wall: No suspicious bony lesions. Ribs and thoracic spine appear intact throughout. Thyroid gland unremarkable. No axillary or supraclavicular adenopathy. Abdomen: Visualized upper abdominal solid organs appear normal in the early arterial phase of enhancement. IMPRESSION: No evidence of pulmonary embolism, aortic dissection or aneurysm Approved by: Randy Guidry M.D. on 11/18/2022 at 8:17
== END 2022-11-18 09:43 | disposition home or self-care (01) ==
PROVIDERS: Emergency Medicine; Emergency Provider Emergency Medicine; PCP Naturopath
DX: M54.6 Pain in thoracic spine (principal); R07.9 Chest pain, unspecified; R07.81 Pleurodynia
CPT/HCPCS: 36415; 71045; 71275; 80053; 81003; 81025; 82550; 83690; 84484; 85025; 85379; 93005; 99284; Q9967

== ENCOUNTER → 2023-03-21 08:13 | Outpatient (CLI) | payer OTHER, SELFPAY ==
[2023-03-21 09:05] LABS: Add Manual Diff / Slide Review NO; Basophils Absolute Auto 0 /uL (0-100); Basophils Percent Auto 0.2 % (0-2); Eosinophils Absolute Auto 200 /uL (0-450); Eosinophils Percent Auto 2.1 % (2-4); Hematocrit 41.5 % (36-46); Hemoglobin 14.2 g/dL (12.0-16.0); Lymphocytes Absolute Auto 2600 /uL (1100-4500); Lymphocytes Percent Auto 35.2 % (25-40); Mean Corpuscular HGB Conc 34.2 % (30-36); Mean Corpuscular Hemoglobin 28.8 PG (26-34); Mean Corpuscular Volume 84.1 fL (80-100); Monocytes Absolute Auto 500 /uL (0-900); Monocytes Percent Auto 7.1 % (3-14); Neutrophils Absolute Auto 4100 /uL (1500-7000); Neutrophils Percent Auto 55.4 % (50-75); Platelet Count 298 X10^3/uL (150-400); Red Blood Cell Count 4.93 X10^6/uL (4.0-5.2); Red Cell Distribution Width 14.4 % (11.6-14.8); White Blood Cell Count 7.4 X10^3/uL (4.5-11.0)
[2023-03-21 09:19] LABS: Alanine Aminotransferase 23 IU/L (<35); Albumin 4.3 g/dL (3.5-5.0); Albumin Globulin Ratio 1.3 (1.0-2.8); Alkaline Phosphatase 82 U/L (38-126); Aspartate Aminotransferase 27 IU/L (14-36); BUN Creatinine Ratio 11.4 (6-22); Bilirubin Total 0.7 mg/dL (0.2-1.3); Blood Urea Nitrogen 8 mg/dL (7-17); Calcium 9.5 mg/dL (8.4-10.2); Carbon Dioxide 27 mmol/L (22-32); Chloride 105 mmol/L (98-107); Cholesterol 162 mg/dL (140-199); Estimated Glomerular Filt Rate > 60 mL/min (>60); Globulin 3.3 g/dL (1.7-4.1); Glucose 102 mg/dL (70-100); HDL Cholesterol 32 mg/dL (40-60); HEMOLYSIS < 15 (0-50); LDL Cholesterol Calculated 114 mg/dL (<100); Potassium 3.9 mmol/L (3.4-5.1); Sodium 139 mmol/L (137-145); Total Protein 7.6 g/dL (6.3-8.2); Triglycerides 78 mg/dL (35-150)
[2023-03-21 09:52] LABS: Thyroid Stimulating Hormone 1.96 uIU/mL (0.47-4.68)
[2023-03-21 09:53] LABS: Ferritin 22 ng/mL (6-137)
== END ==
PROVIDERS: PCP Naturopath; Referring Provider Naturopath; Visit Provider Naturopath
DX: Z00.00 Encounter for general adult medical examination without abnormal findings (principal); R74.8 Abnormal levels of other serum enzymes; D50.9 Iron deficiency anemia, unspecified; R53.83 Other fatigue
CPT/HCPCS: 36415; 80053; 80061; 82728; 84443; 85025

== ENCOUNTER → 2023-09-03 | Outpatient (CLI) | payer OTHER, SELFPAY ==
--- NOTE | 2023-09-03 | DI.MG.S_ITS ---
BILATERAL DIGITAL DIAGNOSTIC MAMMOGRAM 3D/2D: 09/03/2023 CLINICAL: Palpable left breast lump. Baseline exam. No prior exams were available for comparison. There are scattered areas of fibroglandular density in both breasts (category b / 25%-50% glandular tissue). There is a focal asymmetry in the right breast at 6 o'clock middle depth. There is a focal asymmetry in the left breast at 1 o'clock middle depth. This correlates as palpated. Distortion is questionable. No other significant masses or calcifications are seen in either breast. IMPRESSION: INCOMPLETE: NEEDS ADDITIONAL IMAGING EVALUATION The focal asymmetry in the right breast at 6 o'clock middle depth is indeterminate. An ultrasound is recommended. The focal asymmetry in the left breast at 1 o'clock middle depth is indeterminate. An ultrasound is recommended. This is at the site of palpable marker. Circled distortion is questionable. Based on the Tyrer Cuzick model (a risk assessment model) the patient's lifetime risk is 14.0% and her 10 year risk is 0.7%. According to the ACR, ACS, and NCCN guidelines, an annual breast MRI exam along with mammogram is recommended if the patient's lifetime risk is 20% or greater. This exam was interpreted at Station ID: [id number]. NOTE: For mammograms, a report in lay terms will be sent to the patient. Approximately 15% of breast malignancies will not be visualized mammographically. In the management of a palpable breast mass, a negative mammogram must not discourage biopsy of a clinically suspicious lesion. Electronically Signed By: Saulo Lamar M.D. lc/:09/03/2023 14:10:47 ACR BI-RADS Category 0: Incomplete [id number]
--- NOTE | 2023-09-03 | DI.US.S_ITS ---
[place] ULTRASOUND OF LEFT BREAST: 09/03/2023 CLINICAL: Palpable left breast lump. Palpable left breast lump and focal pain. Comparison is made to exam dated: 09/03/2023 mammogram - [facility]. Color flow and real-time ultrasound of the left breast were performed. Denny scale images of the real-time examination were reviewed. There is a 0.7 cm x 0.4 cm x 0.9 cm oval mass in the left breast at 11 o'clock posterior depth 7 cm from the nipple. This correlates as palpated. This may partially correspond to the mammographic focal asymmetry at site of palpable marker. IMPRESSION: PROBABLY BENIGN The 0.7 cm x 0.4 cm x 0.9 cm oval mass in the left breast is probably benign. This correlates as palpated. This may partially correspond to the mammographic focal asymmetry at site of palpable marker. A follow-up mammogram and an ultrasound in 6 months is recommended to demonstrate stability. Patient was advised to continue monitoring clinically and return for re-imaging sooner than 6 months if there are suspicious changes/enlargement. This exam was interpreted at Station ID: [id number]. Electronically Signed By: Saulo Lamar M.D. lc/:09/03/2023 14:14:00 letter sent: Followup Recommended Ultrasound BI-RADS: 3 Probably benign
--- NOTE | 2023-09-03 | DI.US.S_ITS ---
PROCEDURE: US BREAST RT LIMITED COMPARISON: None. INDICATIONS: ADD VIEW FINDINGS: IMPRESSION: Dictated by: Saulo Lamar M.D. on 09/03/2023 at 14:09 Approved by: Sauol Lamar M.D. on 09/03/2023 at 14:11
--- NOTE | 2023-09-03 13:28 | DI.US.S_ITS ---
Patient Name: LESLI QUINONES date: 1990 Sex: F Attending Physician: Cheryle Indications: Date: 09/03/2023 14:11 At the request of: MELITA REYES Procedure: US breast RT limited LIMITED [place] ULTRASOUND OF RIGHT BREAST: 09/03/2023 CLINICAL: Follow up from addtional views. No prior exams were available for comparison. Color flow and real-time ultrasound of the right breast 3-6 o'clock region were performed. No significant abnormalities were seen sonographically in the right breast. IMPRESSION: PROBABLY BENIGN There is no abnormality seen in the right breast to correspond with the mammography finding. A follow-up mammogram in 6 months is recommended to demonstrate stability of the mammographic incidental focal asymmetry. This exam was interpreted at Station ID: [id number]. Electronically Signed By: Saulo Lamar M.D. lc/:09/03/2023 14:11:32 letter sent: Followup Recommended Ultrasound BI-RADS: 3 Probably benign
== END ==
PROVIDERS: PCP Naturopath; Referring Provider Naturopath; Visit Provider Naturopath
DX: N63.22 Unspecified lump in the left breast, upper inner quadrant (principal); R92.8 Other abnormal and inconclusive findings on diagnostic imaging of breast; N64.89 Other specified disorders of breast; N64.4 Mastodynia; R92.323 Mammographic fibroglandular density, bilateral breasts
CPT/HCPCS: 76642; 77066; G0279

== ENCOUNTER 2023-12-07 04:23 | Emergency (ER) | payer OTHER, SELFPAY ==
[2023-12-07 04:30] VITALS: BP 131/81; PULSE 69; RESP 18; TEMP 36.3; O2SAT 100; BMI 42.3
--- NOTE | 2023-12-07 04:42 | DI.RAD.S_ITS ---
PROCEDURE: XR CHEST 1V INDICATIONS: chest pain TECHNIQUE: One view of the chest was acquired. COMPARISON: [facility], CR, XR CHEST 1V, 11/18/2022, 5:17. FINDINGS: Surgical changes and devices: None. Lungs and pleura: Lungs are clear. No pleural effusions or pneumothorax. Mediastinum: Mediastinal contours appear normal. Heart size is normal. Bones and chest wall: No suspicious bony lesions. Overlying soft tissues appear unremarkable. IMPRESSION: No acute cardiopulmonary abnormality is seen. Dictated by: Beka Anderson M.D. on 12/07/2023 at 11:44 Approved by: Beka Anderson M.D. on 12/07/2023 at 11:45
--- NOTE | 2023-12-07 04:52 | EKG_ITS ---
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
[2023-12-07 04:56] LABS: Add Manual Diff / Slide Review NO; Basophils Absolute Auto 0 /uL (0-100); Basophils Percent Auto 0.2 % (0-2); Eosinophils Absolute Auto 200 /uL (0-450); Eosinophils Percent Auto 1.2 % (2-4); Hemoglobin 13.9 g/dL (12.0-16.0); Lymphocytes Absolute Auto 2600 /uL (1100-4500); Lymphocytes Percent Auto 19.5 % (25-40); Mean Corpuscular HGB Conc 33.9 % (30-36); Mean Corpuscular Hemoglobin 29.3 PG (26-34); Mean Corpuscular Volume 86.4 fL (80-100); Monocytes Absolute Auto 700 /uL (0-900); Monocytes Percent Auto 5.2 % (3-14); Neutrophils Absolute Auto 9800 /uL (1500-7000); Neutrophils Percent Auto 73.9 % (50-75); Platelet Count 263 X10^3/uL (150-400); Red Blood Cell Count 4.74 X10^6/uL (4.0-5.2); Red Cell Distribution Width 13.9 % (11.6-14.8); White Blood Cell Count 13.3 X10^3/uL (4.5-11.0)
[2023-12-07 05:01] VITALS: PULSE 70; RESP 13; O2SAT 100
[2023-12-07 05:08] VITALS: BP 102/62; PULSE 62; RESP 15; O2SAT 100
[2023-12-07 05:08] LABS: Alanine Aminotransferase 40 IU/L (<35); Albumin 4.3 g/dL (3.5-5.0); Albumin Globulin Ratio 1.5 (1.0-2.8); Alkaline Phosphatase 79 U/L (38-126); Aspartate Aminotransferase 67 IU/L (14-36); BUN Creatinine Ratio 18.9 (6-22); Bilirubin Total 0.4 mg/dL (0.2-1.3); Blood Urea Nitrogen 14 mg/dL (7-17); Calcium 9.3 mg/dL (8.4-10.2); Carbon Dioxide 25 mmol/L (22-32); Chloride 106 mmol/L (98-107); Creatine Kinase 33 U/L (30-135); Estimated Glomerular Filt Rate > 60 mL/min (>60); Globulin 2.8 g/dL (1.7-4.1); Glucose 124 mg/dL (70-100); HEMOLYSIS < 15 (0-50); Lipase 109 U/L (23-300); Potassium 3.6 mmol/L (3.4-5.1); Sodium 140 mmol/L (137-145); Total Protein 7.1 g/dL (6.3-8.2)
--- NOTE | 2023-12-07 05:10 | ED_ITS ---
HPI - Chest Pain General Chief Complaint: Chest Pain Stated Complaint: chest pain Time Seen by Provider: 12/07/23 04:51 Source: patient Mode of arrival: Ambulatory Limitations: no limitations History of Present Illness HPI narrative: 33-year-old woman was awakened from sleep with complaints of severe chest pain radiating around her back. She states she was having dreams of drowning and difficulty breathing just prior to awakening with the pain. Initially she describes pain as a 9/10 associated with severe anxiety, diaphoresis and tachypnea. 911 was called. Their initial evaluation was unremarkable with reassuring EKG. She has 2 3 year olds and so arrange for a neighbor to bring her to the emergency department to watch the children. She reports we will episodes of reflux but does not describe any burning type symptoms right now. She states she has had similar episodes previously 1 with a workup in the emergency department that was unremarkable. She notes that she has been told by others that she snores and has long periods of apnea while sleeping. She has not been formally evaluated for sleep apnea. She reports she did not have any recent fever, cough, chills, chest pain and yesterday feeling quite well. She is still quite anxious but rates the pain in her chest with associated tightness as a 3/10 currently. She has no longer diaphoretic and remainder of vital signs are reassuring. Related Data Home Medications Medication Instructions Recorded Confirmed etonogestrel 68 mg subdermal subdermal 08/13/23 08/13/23 implant (Nexplanon) Allergies Allergy/AdvReac Type Severity Reaction Status Date / Time No Known Drug Allergies Allergy Verified 08/13/23 11:47 Review of Systems Review of Systems Narrative: Pertinent positive and negative findings as per HPI Patient History Medical History Dichorionic diamniotic twin (~02/2020) Anxiety Ingrown toenail of both feet (~2011) Surgical History S/P matrixectomy of toe (~2011) Family History Mother Anemia Gallbladder disease Autoimmune hemolytic anemia Father Myocardial infarction Heavy smoker Optic nerve disorder Non-arteritic AION (anterior ischemic optic neuropathy) Grandmother Diabetes mellitus CVA (cerebral vascular accident) Hypertension Grandfather No problems noted. Grandmother Myocardial infarction Grandfather No problems noted. Family/Other Drug abuse Hemorrhagic stroke Family/Other Diabetes mellitus Family/Other Family history of identical twins Social History marital status: unmarried,living together household members: significant other lives independently: Yes pets and animals: Yes (X 2 dogs) education level: college occupational status: employed current occupational exposures/hazards: No special alli needs: No Smoking Status: Never smoker second hand exposure: No alcohol intake: former substance use type: does not use and marijuana Smoking Status: Never smoker alcohol intake frequency: a few times a month Substance Use Type: does not use Exam Initial Vital Signs Initial Vital Signs: Vital Signs Temperature 97.4 F L 12/07/23 04:30 Pulse Rate 69 12/07/23 04:30 Respiratory Rate 18 12/07/23 04:30 Blood Pressure 131/81 12/07/23 04:30 Pulse Oximetry 100 12/07/23 04:30 Oxygen Delivery Method Room Air 12/07/23 04:30 General: Healthy appearing, in no acute distress. Able to give a complete and coherent history. Well-nourished well-developed HEENT: Moist mucous membranes, normal sclera with reactive pupils, Neck: No JVD, supple Respiratory: Lungs are clear to auscultation, no wheezing no rales no rhonchi. Full and symmetrical air movement. She has no reproducible chest pain with palpation along the sternum or with compression of the ribcage Cardiac: Regular rate and rhythm no murmurs no bruits Abdomen: Soft, nontender, good bowel tones, no flank pain Skin: Warm and dry, no rashes Neurologic: Grossly neurologically intact with no obvious asymmetries or abnormalities Extremities: No trauma, well perfused Psych: Cooperative, appropriate insight and affect Course Orders Ordered: ED Orders 12/07/23 04:42 XR chest 1V Stat EKG-12 Lead Stat 12/07/23 04:48 Complete Blood Count AUTO DIFF Stat Comprehensive Metabolic Panel Stat Lipase Stat Magnesium Stat Troponin & CK Cardiac Panel Stat Discontinued Medications Aspirin (Aspirin 81 Mg Chew Tab) 324 mg PO NOW ONE Stop: 12/07/23 04:43 Last Admin: 12/07/23 05:30 Dose: Not Given Vital Signs Vital signs: Vital Signs - 8 hr 12/07/23 04:30 12/07/23 05:01 12/07/23 05:08 Temperature 97.4 F L Pulse Rate 69 70 Respiratory Rate 18 13 Blood Pressure 131/81 102/62 Pulse Oximetry 100 100 Oxygen Delivery Method Room Air Room Air 12/07/23 05:08 Temperature Pulse Rate 62 Respiratory Rate 15 Blood Pressure Pulse Oximetry 100 Oxygen Delivery Method Room Air MDM - Chest Pain Lab Data 12/07/23 04:48 12/07/23 04:48 Labs: Lab Results 12/07/23 Range/Units 04:48 WBC 13.3 H (4.5-11.0) X10^3/uL RBC 4.74 (4.0-5.2) X10^6/uL Hgb 13.9 (12.0-16.0) g/dL Hct 41.0 (36-46) % MCV 86.4 (80-100) fL MCH 29.3 (26-34) PG MCHC 33.9 (30-36) % RDW 13.9 (11.6-14.8) % Plt Count 263 (150-400) X10^3/uL Neut % (Auto) 73.9 (50-75) % Lymph % (Auto) 19.5 L (25-40) % [place] % (Auto) 5.2 (3-14) % Eos % (Auto) 1.2 L (2-4) % Baso % (Auto) 0.2 (0-2) % Neut # (Auto) 9800 H (9556-3051) /uL Lymph # (Auto) 2600 (8923-7647) /uL [place] # (Auto) 700 (0-900) /uL Eos # (Auto) 200 (0-450) /uL Baso # (Auto) 0 (0-100) /uL Sodium 140 (137-145) mmol/L Potassium 3.6 (3.4-5.1) mmol/L Chloride 106 (98-107) mmol/L Carbon Dioxide 25 (22-32) mmol/L BUN 14 (7-17) mg/dL Creatinine 0.74 (0.52-1.04) mg/dL Estimated GFR > 60 (>60) mL/min BUN/Creatinine Ratio 18.9 (6-22) Glucose 124 H (70-100) mg/dL Calcium 9.3 (8.4-10.2) mg/dL Magnesium 2.0 (1.6-2.3) mg/dL Total Bilirubin 0.4 (0.2-1.3) mg/dL AST 67 H (14-36) IU/L ALT 40 H (<35) IU/L Alkaline Phosphatase 79 (38-126) U/L Total Creatine Kinase 33 (30-135) U/L Troponin I < 0.012 (0.01-0.034) ng/mL Total Protein 7.1 (6.3-8.2) g/dL Albumin 4.3 (3.5-5.0) g/dL Globulin 2.8 (1.7-4.1) g/dL Albumin/Globulin Ratio 1.5 (1.0-2.8) Lipase 109 (23-300) U/L MDM Narrative Medical decision making narrative: CC: Awakened from sleep with severe radiating chest pain, chest tightness with diaphoresis and tachypnea Complicating co-morbidities: Probable sleep apnea with no formal diagnosis Data collected from: patient Social determinants of health that may influence the patients condition: Currently single parent for to 3-year-old Medical records reviewed: [employer] Supervisor notes and ER visit for musculoskeletal chest pain a year ago are reviewed Differential considered: Acute coronary syndrome, pneumothorax, sleep apnea, gastric reflux with acid in the trachea Exam documented above, pertinent findings include: Exam at this time is entirely benign. No reproducible chest pain with palpation Lab Test results independently reviewed as above. Pertinent findings: CBC shows mild leukocytosis at 13.3, no anemia, no left shift Chemistries show slightly elevated AST and ALT. Troponin is undetectable Lipase is unremarkable Independently reviewed EKG: EKG shows sinus rhythm at a rate of 64 with no acute ischemic changes Imaging studies independently reviewed: Chest x-ray is unremarkable Discussion: 33-year-old woman awakened from sleep with bandlike chest pain that she was having difficulty breathing and significant fear. Cardiac workup is unremarkable with no evidence of infection, pneumothorax, widened mediastinum, acute coronary syndrome. Vital signs including saturation and heart rate have been unremarkable while in the emergency department. Tightness has continued to subside without further intervention in the emergency department. At this point I do not have a life-threatening explanation to explain her symptoms. I am wondering if perhaps she is having a longer episodes of apnea that are causing odd dreams intermixing with her REM sleep and then pain with this sense of chest pain and tightness upon awakening. This possibility is reviewed with the patient along with the reassuring workup. At this point I think she is safe for discharge home and I will recommend that she follow up with the primary care physician. She may benefit from both asleep study as well as coronary stress testing an outpatient. There is no indication for further workup or hospitalization at this time questions are answered and she is safe for discharge Discharge Plan Departure Patient Disposition: Home Clinical Impression: Atypical chest pain Instructions: DI for Atypical Chest Pain Activity Restrictions/Additional Instructions: Thank you for coming in today Your workup was actually quite reassuring. There was no evidence of collapsed lung, pneumonia, heart attack or heart attack like syndrome, significant anemia, infection or alternate explanation for her symptoms today that would require further workup or hospitalization today. I do believe the possibility of sleep apnea with significant episodes of hypoxia needs to be further addressed as an outpatient. This could conceivably explain some of your symptoms as you are awakening from sleep. You may also benefit from outpatient cardiac stress testing. You do need a follow up appointment with your primary care physician. At this time I believe discharge home is safe. If you have new or recurrent symptoms please do return to the emergency department for further evaluation. Prescriptions: No Action Nexplanon 68 mg implant subdermal Referrals: Eleanor Lobato ND [Primary Care Provider] - Stand Alone Forms: Patient Portal/API
[2023-12-07 05:19] LABS: Troponin I < 0.012 ng/mL (0.01-0.034)
[2023-12-07 05:30] VITALS: BP 107/64; PULSE 64; RESP 20; O2SAT 100
[2023-12-07 06:00] VITALS: PULSE 75; RESP 20; O2SAT 99
[2023-12-07 06:01] VITALS: BP 113/73; PULSE 78; RESP 15; O2SAT 99
== END 2023-12-07 06:29 | disposition home or self-care (01) ==
PROVIDERS: Emergency Provider Emergency Medicine; PCP Naturopath
DX: R07.89 Other chest pain (principal)
CPT/HCPCS: 36415; 71045; 80053; 82550; 83690; 83735; 84484; 85025; 93005; 99283

== ENCOUNTER 2023-12-07 23:14 | Emergency (ER) | payer OTHER, SELFPAY ==
--- NOTE | 2023-12-07 23:16 | ED.GENADULT ---
HPI - General Adult <Breanne Castañeda MD - Last Filed: 12/11/23 03:17> General Chief complaint: Abdominal Pain Stated complaint: Returning; Chest Pain Time Seen by Provider: 12/07/23 23:15 History of Present Illness HPI narrative: 33-year-old woman who was seen last night after she was abruptly woken from sleep with severe pain radiating up through her chest associated with shortness of breath. Chest x-ray was unremarkable, labs indicated mild leukocytosis without left shift with mild increased to AST and ALT. Remainder for cardiac workup was unremarkable. After she went home early this morning she was feeling better for a number of hours but over the course of the day her pain is now localizing to her right upper quadrant radiating through to her back and from right upper quadrant radiating up to scapula. She has had an episode of emesis. No palpitations, dyspnea, lower abdominal pain. She has not describing any fevers. She comes back for further evaluation and describes her pain currently as a 7/10 distinctly uncomfortable and from which she can not get into a comfortable position. Related Data Home Medications Medication Instructions Recorded Confirmed etonogestrel 68 mg subdermal subdermal 08/13/23 08/13/23 implant (Nexplanon) Allergies Allergy/AdvReac Type Severity Reaction Status Date / Time No Known Drug Allergies Allergy Verified 08/13/23 11:47 Review of Systems <Breanne Castañeda MD - Last Filed: 12/11/23 03:17> Review of Systems Narrative: Pertinent positive and negative findings as per HPI Patient History <Breanne Castañeda MD - Last Filed: 12/11/23 03:17> Medical History Dichorionic diamniotic twin (~02/2020) Anxiety Ingrown toenail of both feet (~2011) Surgical History S/P matrixectomy of toe (~2011) Family History Mother Anemia Gallbladder disease Autoimmune hemolytic anemia Father Myocardial infarction Heavy smoker Optic nerve disorder Non-arteritic AION (anterior ischemic optic neuropathy) Grandmother Diabetes mellitus CVA (cerebral vascular accident) Hypertension Grandfather No problems noted. Grandmother Myocardial infarction Grandfather No problems noted. Family/Other Drug abuse Hemorrhagic stroke Family/Other Diabetes mellitus Family/Other Family history of identical twins Social History marital status: unmarried,living together household members: significant other lives independently: Yes pets and animals: Yes (X 2 dogs) education level: college occupational status: employed current occupational exposures/hazards: No special alli needs: No Smoking Status: Never smoker second hand exposure: No alcohol intake: former substance use type: does not use and marijuana Smoking Status: Never smoker alcohol intake frequency: a few times a month Substance Use Type: does not use Exam <Breanne Castañeda MD - Last Filed: 12/11/23 03:17> Initial Vital Signs Initial Vital Signs: Vital Signs Temperature 97.8 F 12/07/23 23:25 Pulse Rate 66 12/07/23 23:25 Respiratory Rate 18 12/07/23 23:25 Blood Pressure 129/78 12/07/23 23:25 Pulse Oximetry 98 12/07/23 23:25 Oxygen Delivery Method Room Air 12/07/23 23:25 General: Healthy appearing, in no acute distress. Able to give a complete and coherent history. Well-nourished well-developed Respiratory: Lungs are clear to auscultation, no wheezing no rales no rhonchi. Full and symmetrical air movement Cardiac: Regular rate and rhythm no murmurs no bruits Abdomen: Soft, mild tenderness in the right upper quadrant to the epigastrium without rebound or guarding. Skin: Warm and dry, no rashes Neurologic: Grossly neurologically intact with no obvious asymmetries or abnormalities Extremities: No trauma, well perfused Psych: Cooperative, appropriate insight and affect <Jasper Mishra MD - Last Filed: 12/09/23 07:57> Initial Vital Signs Initial Vital Signs: Vital Signs Temperature 97.8 F 12/07/23 23:25 Pulse Rate 66 12/07/23 23:25 Respiratory Rate 18 12/07/23 23:25 Blood Pressure 129/78 12/07/23 23:25 Pulse Oximetry 98 12/07/23 23:25 Oxygen Delivery Method Room Air 12/07/23 23:25 Course <Breanne Castañeda MD - Last Filed: 12/11/23 03:17> Orders Ordered: Discontinued Medications Hydromorphone HCl (Hydromorphone 0.5 Mg Inj) 0.5 mg IV Q15MIN PRN PRN Reason: Pain, Last Admin: 12/08/23 06:23 Dose: 0.5 mg Documented By: Admin: 12/08/23 01:47 Dose: 0.5 mg Documented By: Hydromorphone HCl (Hydromorphone 0.5 Mg Inj) 0.5 mg IV NOW ONE Stop: 12/08/23 08:03 Last Admin: 12/08/23 08:21 Dose: 0.5 mg Documented By: KELL Sodium Chloride (Normal Saline 0.9%) 1,000 mls @ 1,000 mls/hr IV BOLUS ONE Stop: 12/08/23 00:31 Last Infusion: 12/08/23 00:49 Dose: Infused Documented By: Admin: 12/07/23 23:49 Dose: 1,000 mls/hr Documented By: Ceftriaxone Sodium 2,000 mg/ (Sodium Chloride) 100 mls @ 200 mls/hr IV NOW ONE Stop: 12/08/23 01:33 Last Infusion: 12/08/23 02:20 Dose: Infused Documented By: Admin: 12/08/23 01:45 Dose: 200 mls/hr Documented By: Sodium Chloride (Normal Saline 0.9%) 1,000 mls @ 125 mls/hr IV CONT KIA Last Infusion: 12/08/23 13:43 Dose: Infused Documented By: Admin: 12/08/23 10:57 Dose: 125 mls/hr Documented By: KELL Ketorolac Tromethamine (Ketorolac 30 Mg/Ml Vial) 15 mg IV NOW ONE Stop: 12/07/23 23:33 Last Admin: 12/07/23 23:49 Dose: 15 mg Documented By: Ketorolac Tromethamine (Ketorolac 30 Mg/Ml Vial) 15 mg IV NOW ONE Stop: 12/08/23 10:45 Last Admin: 12/08/23 10:54 Dose: 15 mg Documented By: KELL Lorazepam (Lorazepam 2 Mg/Ml Inj) 0.5 mg IV NOW ONE Stop: 12/08/23 10:45 Last Admin: 12/08/23 10:54 Dose: 0.5 mg Documented By: KELL Ondansetron HCl (Ondansetron 4 Mg/2 Ml Inj) 4 mg IV NOW ONE Stop: 12/07/23 23:33 Last Admin: 12/07/23 23:49 Dose: 4 mg Documented By: Ondansetron HCl (Ondansetron 4 Mg/2 Ml Inj) 4 mg IV NOW ONE Stop: 12/08/23 08:02 Last Admin: 12/08/23 08:21 Dose: 4 mg Documented By: KELL Vital Signs Vital signs: Vital Signs - 8 hr 12/08/23 03:00 12/08/23 03:00 12/08/23 03:30 Pulse Rate 61 60 Blood Pressure 103/56 L Pulse Oximetry 96 95 Oxygen Delivery Method Room Air 12/08/23 03:30 12/08/23 04:00 12/08/23 04:00 Pulse Rate 62 Blood Pressure 99/54 L 93/52 L Pulse Oximetry 96 Oxygen Delivery Method Room Air 12/08/23 04:30 12/08/23 04:30 12/08/23 05:00 Pulse Rate 66 60 Blood Pressure 92/51 L Pulse Oximetry 95 95 Oxygen Delivery Method Room Air 12/08/23 05:00 12/08/23 05:30 12/08/23 05:30 Pulse Rate 63 Blood Pressure 92/55 L 90/54 L Pulse Oximetry 95 Oxygen Delivery Method Room Air 12/08/23 06:00 12/08/23 06:00 12/08/23 06:30 Pulse Rate 76 74 Blood Pressure 127/82 Pulse Oximetry 98 97 Oxygen Delivery Method 12/08/23 06:31 12/08/23 06:31 12/08/23 07:00 Pulse Rate 75 59 L Blood Pressure 116/69 Pulse Oximetry 97 95 Oxygen Delivery Method Room Air 12/08/23 07:00 12/08/23 07:37 12/08/23 07:38 Pulse Rate 73 68 Blood Pressure 99/54 L Pulse Oximetry 98 96 Oxygen Delivery Method 12/08/23 07:38 12/08/23 08:00 12/08/23 08:00 Pulse Rate 72 Blood Pressure 128/76 98/54 L Pulse Oximetry 97 Oxygen Delivery Method 12/08/23 08:30 12/08/23 08:30 12/08/23 09:00 Pulse Rate 77 Blood Pressure 101/76 92/56 L Pulse Oximetry 98 Oxygen Delivery Method 12/08/23 09:00 12/08/23 09:30 12/08/23 09:30 Pulse Rate 56 L 64 Blood Pressure 96/52 L Pulse Oximetry 95 94 Oxygen Delivery Method 12/08/23 10:00 12/08/23 10:30 Pulse Rate 71 75 Blood Pressure 102/58 L 103/63 Pulse Oximetry 98 100 Oxygen Delivery Method Room Air Room Air <Jasper Mishra MD - Last Filed: 12/09/23 07:57> Orders Ordered: Discontinued Medications Hydromorphone HCl (Hydromorphone 0.5 Mg Inj) 0.5 mg IV Q15MIN PRN PRN Reason: Pain, Last Admin: 12/08/23 06:23 Dose: 0.5 mg Documented By: Admin: 12/08/23 01:47 Dose: 0.5 mg Documented By: Hydromorphone HCl (Hydromorphone 0.5 Mg Inj) 0.5 mg IV NOW ONE Stop: 12/08/23 08:03 Last Admin: 12/08/23 08:21 Dose: 0.5 mg Documented By: KELL Sodium Chloride (Normal Saline 0.9%) 1,000 mls @ 1,000 mls/hr IV BOLUS ONE Stop: 12/08/23 00:31 Last Infusion: 12/08/23 00:49 Dose: Infused Documented By: Admin: 12/07/23 23:49 Dose: 1,000 mls/hr Documented By: Ceftriaxone Sodium 2,000 mg/ (Sodium Chloride) 100 mls @ 200 mls/hr IV NOW ONE Stop: 12/08/23 01:33 Last Infusion: 12/08/23 02:20 Dose: Infused Documented By: Admin: 12/08/23 01:45 Dose: 200 mls/hr Documented By: Sodium Chloride (Normal Saline 0.9%) 1,000 mls @ 125 mls/hr IV CONT KIA Last Infusion: 12/08/23 13:43 Dose: Infused Documented By: Admin: 12/08/23 10:57 Dose: 125 mls/hr Documented By: KELL Ketorolac Tromethamine (Ketorolac 30 Mg/Ml Vial) 15 mg IV NOW ONE Stop: 12/07/23 23:33 Last Admin: 12/07/23 23:49 Dose: 15 mg Documented By: Ketorolac Tromethamine (Ketorolac 30 Mg/Ml Vial) 15 mg IV NOW ONE Stop: 12/08/23 10:45 Last Admin: 12/08/23 10:54 Dose: 15 mg Documented By: KELL Lorazepam (Lorazepam 2 Mg/Ml Inj) 0.5 mg IV NOW ONE Stop: 12/08/23 10:45 Last Admin: 12/08/23 10:54 Dose: 0.5 mg Documented By: KELL Ondansetron HCl (Ondansetron 4 Mg/2 Ml Inj) 4 mg IV NOW ONE Stop: 12/07/23 23:33 Last Admin: 12/07/23 23:49 Dose: 4 mg Documented By: Ondansetron HCl (Ondansetron 4 Mg/2 Ml Inj) 4 mg IV NOW ONE Stop: 12/08/23 08:02 Last Admin: 12/08/23 08:21 Dose: 4 mg Documented By: KELL Vital Signs Vital signs: Vital Signs - 8 hr 12/08/23 03:00 12/08/23 03:00 12/08/23 03:30 Pulse Rate 61 60 Blood Pressure 103/56 L Pulse Oximetry 96 95 Oxygen Delivery Method Room Air 12/08/23 03:30 12/08/23 04:00 12/08/23 04:00 Pulse Rate 62 Blood Pressure 99/54 L 93/52 L Pulse Oximetry 96 Oxygen Delivery Method Room Air 12/08/23 04:30 12/08/23 04:30 12/08/23 05:00 Pulse Rate 66 60 Blood Pressure 92/51 L Pulse Oximetry 95 95 Oxygen Delivery Method Room Air 12/08/23 05:00 12/08/23 05:30 12/08/23 05:30 Pulse Rate 63 Blood Pressure 92/55 L 90/54 L Pulse Oximetry 95 Oxygen Delivery Method Room Air 12/08/23 06:00 12/08/23 06:00 12/08/23 06:30 Pulse Rate 76 74 Blood Pressure 127/82 Pulse Oximetry 98 97 Oxygen Delivery Method 12/08/23 06:31 12/08/23 06:31 12/08/23 07:00 Pulse Rate 75 59 L Blood Pressure 116/69 Pulse Oximetry 97 95 Oxygen Delivery Method Room Air 12/08/23 07:00 12/08/23 07:37 12/08/23 07:38 Pulse Rate 73 68 Blood Pressure 99/54 L Pulse Oximetry 98 96 Oxygen Delivery Method 12/08/23 07:38 12/08/23 08:00 12/08/23 08:00 Pulse Rate 72 Blood Pressure 128/76 98/54 L Pulse Oximetry 97 Oxygen Delivery Method 12/08/23 08:30 12/08/23 08:30 12/08/23 09:00 Pulse Rate 77 Blood Pressure 101/76 92/56 L Pulse Oximetry 98 Oxygen Delivery Method 12/08/23 09:00 12/08/23 09:30 12/08/23 09:30 Pulse Rate 56 L 64 Blood Pressure 96/52 L Pulse Oximetry 95 94 Oxygen Delivery Method 12/08/23 10:00 12/08/23 10:30 Pulse Rate 71 75 Blood Pressure 102/58 L 103/63 Pulse Oximetry 98 100 Oxygen Delivery Method Room Air Room Air Medical Decision Making <Breanne Castañeda MD - Last Filed: 12/11/23 03:17> Lab Data 12/07/23 23:40 12/07/23 23:40 Labs: Lab Results 12/07/23 Range/Units 23:40 WBC 6.5 D (4.5-11.0) X10^3/uL RBC 4.63 (4.0-5.2) X10^6/uL Hgb 13.7 (12.0-16.0) g/dL Hct 40.2 (36-46) % MCV 86.9 (80-100) fL MCH 29.7 (26-34) PG MCHC 34.2 (30-36) % RDW 13.8 (11.6-14.8) % Plt Count 273 (150-400) X10^3/uL Neut % (Auto) 71.8 (50-75) % Lymph % (Auto) 20.3 L (25-40) % [place] % (Auto) 7.2 (3-14) % Eos % (Auto) 0.5 L (2-4) % Baso % (Auto) 0.2 (0-2) % Neut # (Auto) 4700 (9729-5045) /uL Lymph # (Auto) 1300 (5019-1157) /uL [place] # (Auto) 500 (0-900) /uL Eos # (Auto) 0 (0-450) /uL Baso # (Auto) 0 (0-100) /uL Sodium 137 (137-145) mmol/L Potassium 3.7 (3.4-5.1) mmol/L Chloride 108 H (98-107) mmol/L Carbon Dioxide 23 (22-32) mmol/L BUN 8 (7-17) mg/dL Creatinine 0.58 (0.52-1.04) mg/dL Estimated GFR > 60 (>60) mL/min BUN/Creatinine Ratio 13.8 (6-22) Glucose 124 H (70-100) mg/dL Calcium 8.8 (8.4-10.2) mg/dL Total Bilirubin 2.6 H (0.2-1.3) mg/dL AST 779 H (14-36) IU/L ALT 739 H (<35) IU/L Alkaline Phosphatase 146 H D (38-126) U/L Total Protein 6.9 (6.3-8.2) g/dL Albumin 3.9 (3.5-5.0) g/dL Globulin 3.0 (1.7-4.1) g/dL Albumin/Globulin Ratio 1.3 (1.0-2.8) Lipase 84 (23-300) U/L Imaging Data US - abdomen: Radiologist's Impression: PROCEDURE: US ABDOMEN LIMITED INDICATIONS: RUQ pain, ? gallbladder issues TECHNIQUE: Real-time scanning was performed of the abdominal and retroperitoneal organs, with image documentation. COMPARISON: None. FINDINGS: Liver: Liver is normal in size and homogeneous in echotexture. Gallbladder: Cholelithiasis. Mild gallbladder wall thickening. Negative sonographic Burns sign. No pericholecystic fluid. Biliary ducts: Intrahepatic bile ducts are non-dilated. Extrahepatic bile duct caliber measures 10 mm. Normal is 6-7 mm or less in diameter, or 10 mm or less post-cholecystectomy. Pancreas: Visualized portions of the pancreas are sonographically normal. Miscellaneous: No free abdominal fluid. IMPRESSION: Cholelithiasis with mild gallbladder wall thickening. Negative sonographic Burns sign, although unclear if the patient is premedicated. Findings are equivocal for acute cholecystitis. Dilated common bile duct measuring up to 10 mm. Findings may indicate choledocholithiasis. Consider MRCP. Dictated by: Juan Holguin M.D. on 12/08/2023 at 1:09 MDM Narrative Medical decision making narrative: CC: Right upper quadrant abdominal pain Complicating co-morbidities: Similar complaints last night awoke her from sleep central chest radiating up into the remainder of her chest with negative workup at that time Data collected from: patient Social determinants of health that may influence the patients condition: Patient notes that her mother had similar findings with acute cholecystitis Medical records reviewed: Labs notes and imaging studies from yesterday's visits reviewed Differential considered: Acute cholecystitis, choledocholithiasis, gastroenteritis, pneumonia Exam documented above, pertinent findings include: Right upper quadrant tenderness without rebound or guarding Lab Test results independently reviewed as above. Pertinent findings: CBC shows no leukocytosis no anemia Chemistries are notable for normal renal function. Significant change to liver enzymes in the last 24 hours. Bilirubin has increased from 0.4-2.6. AST is increased from 67-779. AST is increased from 40-739, alkaline phosphatase is increased from 79-146. Lipase remains within normal limits Imaging studies independently reviewed: Ultrasound shows slightly enlarged gallbladder, gallstones not obviously impacted, slightly enlarged bile duct, concern for acute cholecystitis and or choledocholithiasis. Consultations: Care is reviewed with Dr. Cesar on-call. Agrees with MRCP. If it does look like common bile duct stone was present and has passed he will certainly consult for consideration of cholecystectomy. If it looks like she continues to have an obstructing common bile duct stone will need transfer to facility where ERCP is available Treatments: Toradol, Zofran, saline. Now that is clear she will not be driving home immediately pain is inadequately controlled will add Dilaudid as well as ceftriaxone Re-evaluations: Discussion: <Jasper Mishra MD - Last Filed: 12/09/23 07:57> Lab Data Labs: Lab Results 12/07/23 Range/Units 23:40 WBC 6.5 D (4.5-11.0) X10^3/uL RBC 4.63 (4.0-5.2) X10^6/uL Hgb 13.7 (12.0-16.0) g/dL Hct 40.2 (36-46) % MCV 86.9 (80-100) fL MCH 29.7 (26-34) PG MCHC 34.2 (30-36) % RDW 13.8 (11.6-14.8) % Plt Count 273 (150-400) X10^3/uL Neut % (Auto) 71.8 (50-75) % Lymph % (Auto) 20.3 L (25-40) % [place] % (Auto) 7.2 (3-14) % Eos % (Auto) 0.5 L (2-4) % Baso % (Auto) 0.2 (0-2) % Neut # (Auto) 4700 (9071-5480) /uL Lymph # (Auto) 1300 (0078-0453) /uL [place] # (Auto) 500 (0-900) /uL Eos # (Auto) 0 (0-450) /uL Baso # (Auto) 0 (0-100) /uL Sodium 137 (137-145) mmol/L Potassium 3.7 (3.4-5.1) mmol/L Chloride 108 H (98-107) mmol/L Carbon Dioxide 23 (22-32) mmol/L BUN 8 (7-17) mg/dL Creatinine 0.58 (0.52-1.04) mg/dL Estimated GFR > 60 (>60) mL/min BUN/Creatinine Ratio 13.8 (6-22) Glucose 124 H (70-100) mg/dL Calcium 8.8 (8.4-10.2) mg/dL Total Bilirubin 2.6 H (0.2-1.3) mg/dL AST 779 H (14-36) IU/L ALT 739 H (<35) IU/L Alkaline Phosphatase 146 H D (38-126) U/L Total Protein 6.9 (6.3-8.2) g/dL Albumin 3.9 (3.5-5.0) g/dL Globulin 3.0 (1.7-4.1) g/dL Albumin/Globulin Ratio 1.3 (1.0-2.8) Lipase 84 (23-300) U/L Imaging Data MRCP: Radiologist's Impression: [address] [address] Magnetic Resonance Report Signed Patient: Johana Tineo MR#: [id number] : 1990 Acct:[id number] Age/Sex: 33 / F Date of Service: 12/08/23 Loc: ED Accession Number: [id number] Procedure: MR abdomen wo/w con Ordering Provider: Breanne Castañeda MD PROCEDURE: MR ABDOMEN WO/W CON INDICATIONS: Choledocolithiasis TECHNIQUE: Coronal HASTE, axial 2D FLASH in- and [id number]; axial breath-hold T2 FSE with fat saturation from the hepatic dome to the iliac crests. Oblique coronal thin-slice and radial thick slab HASTE through the biliary system. Dynamic axial VIBE during administration of contrast. Post-contrast coronal VIBE or 2D FLASH with fat saturation from the hepatic dome to the iliac crests. Optional diffusion weighted imaging and ADC may be performed. COMPARISON: [facility], , ABDOMEN LIMITED, 12/08/2023, 0:24. FINDINGS: Image quality: Diagnostic. Gallbladder: There are numerous gallstones in the gallbladder. There may be a stone in the cystic duct just beyond the gallbladder neck. Biliary ducts: There is a distal common duct stone with resultant biliary ductal dilatation, which is mild. Pancreas: No ductal dilation. OTHER: Lung bases: Unremarkable. Liver: No solid mass. Spleen: Size is within normal limits. Adrenal Glands: No adrenal nodules. Kidneys and Ureters: No hydronephrosis. No solid mass. No complex renal cystic lesion which requires follow up. Stomach and Bowel: Normal colonic caliber, without significant wall thickening. Peritoneum: There is mild perisplenic ascites. No free air. Ventral Wall: No hernia. Abdominal Nodes: No retroperitoneal or mesenteric adenopathy by size criteria. Vessels: Aorta and inferior vena cava are normal in size. Bones: No aggressive osseous abnormality. IMPRESSION: 1. Cholelithiasis. 2. Small distal common duct stone with mild biliary ductal dilatation. 3. Question cystic duct stone. 4. Mild ascites. Dictated by: Beka Anderson M.D. on 12/08/2023 at 7:54 Approved by: Beka Anderson M.D. on 12/08/2023 at 8:03 [facility] Narrative Medical decision making narrative: CC: Right upper quadrant abdominal pain Complicating co-morbidities: Similar complaints last night awoke her from sleep central chest radiating up into the remainder of her chest with negative workup at that time Data collected from: patient Social determinants of health that may influence the patients condition: Patient notes that her mother had similar findings with acute cholecystitis Medical records reviewed: Labs notes and imaging studies from yesterday's visits reviewed Differential considered: Acute cholecystitis, choledocholithiasis, gastroenteritis, pneumonia Exam documented above, pertinent findings include: Right upper quadrant tenderness without rebound or guarding Lab Test results independently reviewed as above. Pertinent findings: CBC shows no leukocytosis no anemia Chemistries are notable for normal renal function. Significant change to liver enzymes in the last 24 hours. Bilirubin has increased from 0.4-2.6. AST is increased from 67-779. AST is increased from 40-739, alkaline phosphatase is increased from 79-146. Lipase remains within normal limits Imaging studies independently reviewed: Ultrasound shows slightly enlarged gallbladder, gallstones not obviously impacted, slightly enlarged bile duct, concern for acute cholecystitis and or choledocholithiasis. Consultations: Care is reviewed with Dr. Cesar on-call. Agrees with MRCP. If it does look like common bile duct stone was present and has passed he will certainly consult for consideration of cholecystectomy. If it looks like she continues to have an obstructing common bile duct stone will need transfer to facility where ERCP is available Treatments: Toradol, Zofran, saline. Now that is clear she will not be driving home immediately pain is inadequately controlled will add Dilaudid as well as ceftriaxone Re-evaluations: Discussion: 12/08/2023, 07Tad Gomez. Sign-out from Dr. Castañeda. MRCP to be performed this morning. 33-year-old female with repeat visit for chest pain, right upper quadrant ultrasound shows possible cholecystitis, common bile duct dilatation suspected, slight interval increase LFTs, MRCP study ordered to be done later this morning, surgery Dr. Cesar aware, anticipate transfer if choledocholithiasis/obstruction confirmed, otherwise we will consult surgery for possible cholecystectomy. Patient has received IV Dilaudid, Zofran, ceftriaxone. NPO. Await MRCP study/results. Assumed interim care. 0815, MRCP does confirm distal common bile duct stone, as well as cholelithiasis. See radiology report. Copy of the report given to patient with discussion, we will transfer to GI/ERCP capable facility. Keep NPO 0930, no ERCP or beds available [facility] [place], [place] [facility], [place]. Possible consultation with [facility] for placement. 1100, case discussed with hospitalist at [facility], Dr. Gilmore, accepts patient for transfer and coordinate surgery/GI consultations Critical Care Time <Jasper Mishra MD - Last Filed: 12/09/23 07:57> Critical Care Time Critical Care Time: Yes Total Critical Care Time: 35 Attestation: The high probability of a clinically significant, sudden or life threatening deterioration of the [gastrointestinal, abdominopelvic, ] system(s) required my full and direct attention, intervention and personal management. The aggregate critical care time was [35] minutes. This time is in addition to time spent performing reported procedures but includes the following: [x] Data Review and interpretation [x] Patient assessment and monitoring of vital signs [x] Documentation [x] Medication orders and management Discharge Plan Departure Patient Disposition: [facility] Clinical Impression: Cholelithiasis Choledocholithiasis with obstruction Qualifiers: Cholecystitis presence: with cholecystitis Cholecystitis acuity: acute Qualified Code(s): K80.43 - Calculus of bile duct with acute cholecystitis with obstruction Prescriptions: No Action Nexplanon 68 mg implant subdermal Referrals: Eleanor Lobato ND [Primary Care Provider] -
[2023-12-07 23:25] VITALS: BP 129/78; PULSE 66; RESP 18; TEMP 36.6; O2SAT 98; BMI 42.3
--- NOTE | 2023-12-07 23:32 | DI.US.S_ITS ---
PROCEDURE: US ABDOMEN LIMITED INDICATIONS: RUQ pain, ? gallbladder issues TECHNIQUE: Real-time scanning was performed of the abdominal and retroperitoneal organs, with image documentation. COMPARISON: None. FINDINGS: Liver: Liver is normal in size and homogeneous in echotexture. Gallbladder: Cholelithiasis. Mild gallbladder wall thickening. Negative sonographic Burns sign. No pericholecystic fluid. Biliary ducts: Intrahepatic bile ducts are non-dilated. Extrahepatic bile duct caliber measures 10 mm. Normal is 6-7 mm or less in diameter, or 10 mm or less post-cholecystectomy. Pancreas: Visualized portions of the pancreas are sonographically normal. Miscellaneous: No free abdominal fluid. IMPRESSION: Cholelithiasis with mild gallbladder wall thickening. Negative sonographic Burns sign, although unclear if the patient is premedicated. Findings are equivocal for acute cholecystitis. Dilated common bile duct measuring up to 10 mm. Findings may indicate choledocholithiasis. Consider MRCP. Dictated by: Juan Holguin M.D. on 12/08/2023 at 1:09 Approved by: Juan Holguin M.D. on 12/08/2023 at 1:11
--- NOTE | 2023-12-07 23:37 | EKG_ITS ---
[address] [address] [address] [address] Test Date: 2023-12-07 Pat Name: Johana Tineo Department: Room: Gender: Female [employer]: : 1990 Requested By: Order Number: [id number] Reading MD: Blas Ojeda MD Measurements Intervals [place] Rate: 68 P: 41 [place]: 148 QRS: 53 QRSD: 78 T: 24 QT: 386 QTc: 410 Interpretive Statements Normal sinus rhythm with sinus arrhythmia Low voltage QRS Nonspecific T wave abnormality Electronically Signed On 12-08-2023 12:05:35 PDT by Blas Ojeda MD
[2023-12-07 23:44] VITALS: PULSE 59; O2SAT 98
[2023-12-07 23:45] VITALS: BP 123/77; PULSE 60; O2SAT 97
[2023-12-07] MEDS: KETOROLAC 30 MG/ML VIAL 15 MG IV (23:49)
[2023-12-07] MEDS: ONDANSETRON 4 MG/2 ML INJ IV (23:49)
[2023-12-07] MEDS: SODIUM CHLORIDE 0.9% 1,000 ML 1000 ML IV (23:49)
[2023-12-07 23:55] LABS: Add Manual Diff / Slide Review NO; Basophils Absolute Auto 0 /uL (0-100); Basophils Percent Auto 0.2 % (0-2); Eosinophils Absolute Auto 0 /uL (0-450); Eosinophils Percent Auto 0.5 % (2-4); Hematocrit 40.2 % (36-46); Hemoglobin 13.7 g/dL (12.0-16.0); Lymphocytes Absolute Auto 1300 /uL (1100-4500); Lymphocytes Percent Auto 20.3 % (25-40); Mean Corpuscular HGB Conc 34.2 % (30-36); Mean Corpuscular Hemoglobin 29.7 PG (26-34); Mean Corpuscular Volume 86.9 fL (80-100); Monocytes Absolute Auto 500 /uL (0-900); Monocytes Percent Auto 7.2 % (3-14); Neutrophils Absolute Auto 4700 /uL (1500-7000); Neutrophils Percent Auto 71.8 % (50-75); Platelet Count 273 X10^3/uL (150-400); Red Blood Cell Count 4.63 X10^6/uL (4.0-5.2); Red Cell Distribution Width 13.8 % (11.6-14.8); White Blood Cell Count 6.5 X10^3/uL (4.5-11.0)
[2023-12-08] VITALS (28 sets, daily range): BP systolic 90–142; BP diastolic 51–89; PULSE 55–77; RESP 16–17; O2SAT 94–100
[2023-12-08 00:06] LABS: Alanine Aminotransferase 739 IU/L (<35); Albumin 3.9 g/dL (3.5-5.0); Albumin Globulin Ratio 1.3 (1.0-2.8); Alkaline Phosphatase 146 U/L (38-126); BUN Creatinine Ratio 13.8 (6-22); Bilirubin Total 2.6 mg/dL (0.2-1.3); Blood Urea Nitrogen 8 mg/dL (7-17); Calcium 8.8 mg/dL (8.4-10.2); Carbon Dioxide 23 mmol/L (22-32); Chloride 108 mmol/L (98-107); Estimated Glomerular Filt Rate > 60 mL/min (>60); Glucose 124 mg/dL (70-100); HEMOLYSIS < 15 (0-50); Lipase 84 U/L (23-300); Potassium 3.7 mmol/L (3.4-5.1); Sodium 137 mmol/L (137-145); Total Protein 6.9 g/dL (6.3-8.2)
[2023-12-08 00:13] LABS: Aspartate Aminotransferase 779 IU/L (14-36)
[2023-12-08] MEDS: cefTRIAXone 2,000 MG in SODIUM CHLORIDE 0.9% 100 ML 200 MG IV (01:45)
[2023-12-08] MEDS: HYDROMORPHONE 0.5 MG INJ IV ×3 (01:47→08:21)
--- NOTE | 2023-12-08 01:58 | DI.MRI.S_ITS ---
PROCEDURE: MR ABDOMEN WO/W CON INDICATIONS: Choledocolithiasis TECHNIQUE: Coronal HASTE, axial 2D FLASH in- and [id number]; axial breath-hold T2 FSE with fat saturation from the hepatic dome to the iliac crests. Oblique coronal thin-slice and radial thick slab HASTE through the biliary system. Dynamic axial VIBE during administration of contrast. Post-contrast coronal VIBE or 2D FLASH with fat saturation from the hepatic dome to the iliac crests. Optional diffusion weighted imaging and ADC may be performed. COMPARISON: [facility], US, US ABDOMEN LIMITED, 12/08/2023, 0:24. FINDINGS: Image quality: Diagnostic. Gallbladder: There are numerous gallstones in the gallbladder. There may be a stone in the cystic duct just beyond the gallbladder neck. Biliary ducts: There is a distal common duct stone with resultant biliary ductal dilatation, which is mild. Pancreas: No ductal dilation. OTHER: Lung bases: Unremarkable. Liver: No solid mass. Spleen: Size is within normal limits. Adrenal Glands: No adrenal nodules. Kidneys and Ureters: No hydronephrosis. No solid mass. No complex renal cystic lesion which requires follow up. Stomach and Bowel: Normal colonic caliber, without significant wall thickening. Peritoneum: There is mild perisplenic ascites. No free air. Ventral Wall: No hernia. Abdominal Nodes: No retroperitoneal or mesenteric adenopathy by size criteria. Vessels: Aorta and inferior vena cava are normal in size. Bones: No aggressive osseous abnormality. IMPRESSION: 1. Cholelithiasis. 2. Small distal common duct stone with mild biliary ductal dilatation. 3. Question cystic duct stone. 4. Mild ascites. Dictated by: Beka Anderson M.D. on 12/08/2023 at 7:54 Approved by: Beka Anderson M.D. on 12/08/2023 at 8:03
[2023-12-08] MEDS: ONDANSETRON 4 MG/2 ML INJ IV (08:21)
--- NOTE | 2023-12-08 10:44 | PC.NURSE ---
Patient complains of nausea with dry heaves, with some tingling in her arms, some anxiety, and a headache. Dr. Mishra informed and aware, verbal order given for 0.5mg ativan, 15 mg toradol IV at this time.
[2023-12-08] MEDS: KETOROLAC 30 MG/ML VIAL 15 MG IV (10:54)
[2023-12-08] MEDS: LORazepam 2 MG/ML INJ 0.5 MG IV (10:54)
[2023-12-08] MEDS: SODIUM CHLORIDE 0.9% 1,000 ML 125 ML IV (10:57)
--- NOTE | 2023-12-08 11:47 | PC.NURSE ---
Patient reports her anxiety is gone and tingling in hands has gone away. Headache and nausea also are improved.
--- NOTE | 2023-12-08 11:48 | PC.NURSE ---
0930 Patient requests pain and nausea meds.
--- NOTE | 2023-12-08 11:48 | PC.NURSE ---
Patient informed and aware of transfer.
--- NOTE | 2023-12-08 13:37 | PC.NURSE ---
Report given to [facility] RN regarding patient and transfer to [place]. Fluids stopped and given to [facility] to restart on their pump.
--- NOTE | 2023-12-08 13:42 | PC.NURSE ---
Report given to Noemy Kowalski at [facility].
== END 2023-12-08 13:53 | disposition short-term general hospital (02) ==
PROVIDERS: Emergency Medicine; Emergency Provider Emergency Medicine; PCP Naturopath
DX: K80.43 Calculus of bile duct with acute cholecystitis with obstruction (principal); K80.20 Calculus of gallbladder without cholecystitis without obstruction; R07.89 Other chest pain
CPT/HCPCS: 36415; 71045; 74183; 76705; 80053; 82550; 83690; 83735; 84484; 85025; 93005; 93010; 96361; 96365; 96375; 96376; 99283; 99284; A9579; J0696; J1170; J1885; J2060; J2405

== ENCOUNTER → 2024-08-27 09:39 | Outpatient (CLI) | payer OTHER, SELFPAY ==
[2024-08-27 10:23] LABS: Add Manual Diff / Slide Review NO; Basophils Absolute Auto 0 /uL (0-100); Basophils Percent Auto 0.3 % (0-2); Eosinophils Absolute Auto 100 /uL (0-450); Eosinophils Percent Auto 3.4 % (2-4); Hematocrit 39.9 % (36-46); Hemoglobin 13.7 g/dL (12.0-16.0); Lymphocytes Absolute Auto 1500 /uL (1100-4500); Lymphocytes Percent Auto 40.7 % (25-40); Mean Corpuscular HGB Conc 34.4 % (30-36); Mean Corpuscular Volume 87.3 fL (80-100); Monocytes Absolute Auto 300 /uL (0-900); Monocytes Percent Auto 8.9 % (3-14); Neutrophils Absolute Auto 1700 /uL (1500-7000); Neutrophils Percent Auto 46.7 % (50-75); Platelet Count 217 X10^3/uL (150-400); Red Blood Cell Count 4.57 X10^6/uL (4.0-5.2); White Blood Cell Count 3.6 X10^3/uL (4.5-11.0)
[2024-08-27 10:40] LABS: Alanine Aminotransferase 28 IU/L (<35); Albumin 4.1 g/dL (3.5-5.0); Albumin Globulin Ratio 1.5 (1.0-2.8); Alkaline Phosphatase 60 U/L (38-126); Aspartate Aminotransferase 31 IU/L (14-36); BUN Creatinine Ratio 14.9 (6-22); Bilirubin Total 0.8 mg/dL (0.2-1.3); Blood Urea Nitrogen 11 mg/dL (7-17); Calcium 9.6 mg/dL (8.4-10.2); Carbon Dioxide 25 mmol/L (22-32); Chloride 105 mmol/L (98-107); Cholesterol 181 mg/dL (140-199); Estimated Glomerular Filt Rate > 60 mL/min (>60); Globulin 2.7 g/dL (1.7-4.1); Glucose 90 mg/dL (70-99); HDL Cholesterol 44 mg/dL (40-60); HEMOLYSIS < 15 (0-50); LDL Cholesterol Calculated 126 mg/dL (<100); Sodium 138 mmol/L (137-145); Total Protein 6.8 g/dL (6.3-8.2); Triglycerides 57 mg/dL (35-150)
[2024-08-27 11:10] LABS: Thyroid Stimulating Hormone 1.42 uIU/mL (0.47-4.68)
[2024-08-27 11:14] LABS: Ferritin 25 ng/mL (6-137)
== END ==
PROVIDERS: PCP Naturopath; Referring Provider Naturopath; Visit Provider Naturopath
DX: Z00.00 Encounter for general adult medical examination without abnormal findings (principal); E61.1 Iron deficiency; R53.83 Other fatigue
CPT/HCPCS: 36415; 80053; 80061; 82728; 84443; 85025

== ENCOUNTER → 2024-09-25 12:46 | Outpatient (CLI) | payer OTHER, SELFPAY ==
--- NOTE | 2024-09-25 12:47 | DI.MG.S_ITS ---
MM diagnostic mammo BI, US breast LT limited: 09/25/2024 BI-RADS: 1 CLINICAL: 34-year old female for bilateral diagnostic mammogram and left diagnostic breast ultrasound. Tyrer-Cuzick lifetime risk of 13.0%. No personal or first- degree family history of breast cancer. PRIOR EXAMS 09/03/2023. MAMMOGRAPHY TECHNIQUE: 2D and 3D (tomosynthesis) digital mammographic views obtained, with additional images as needed for full coverage. Current study was also evaluated with a Computer Aided Detection (CAD) system. ULTRASOUND TECHNIQUE: Real-time harman scale and color doppler imaging of the area of clinical interest was performed with image documentation. DENSITY C. The breasts are heterogeneously dense, which may obscure small masses. MAMMOGRAPHY FINDINGS Right: The previously seen focal asymmetry at 6 o'clock middle depth is no longer visualized. No suspicious mass, asymmetry, microcalcification, or other abnormality seen. Left: The previously seen focal asymmetry at 1 o'clock middle depth is no longer visualized. No suspicious mass, asymmetry, microcalcification, or other abnormality seen. ULTRASOUND FINDINGS Left: The previously seen mass at 2 o'clock, 7 cm from the nipple (previously reported at 11 o'clock) is no longer visualized, consistent with mammographic findings. IMPRESSION: * No evidence of malignancy. RECOMMENDATIONS Bilateral * Annual screening mammography beginning at age 40. COMMENTS: Findings and recommendations were conveyed to the patient during today's evaluation. OVERALL ASSESSMENT CATEGORY BI-RADS-1: Negative. [employer] [place] [employer] recommends annual screening mammography beginning at age 40 for women with average risk of breast cancer. ELECTRONICALLY SIGNED: Viry Luna M.D. on 09/25/2024 at 05:23:30 PM PT Interpreting Station ID: [id number]
== END ==
LOC: MAMMO 12:47
PROVIDERS: PCP Naturopath; Referring Provider Naturopath; Visit Provider Naturopath
DX: R92.8 Other abnormal and inconclusive findings on diagnostic imaging of breast (principal); R92.333 Mammographic heterogeneous density, bilateral breasts
CPT/HCPCS: 76642; 77066; G0279

== ENCOUNTER → 2024-11-11 14:26 | Outpatient (CLI) | payer OTHER, SELFPAY ==
[2024-11-11 14:50] LABS: Add Manual Diff / Slide Review NO; Hematocrit 40.3 % (36-46); Hemoglobin 14.4 g/dL (12.0-16.0); Lymphocytes Absolute Auto 1700 /uL (1100-4500); Mean Corpuscular HGB Conc 35.6 % (30-36); Mean Corpuscular Hemoglobin 31.1 PG (26-34); Mean Corpuscular Volume 87.2 fL (80-100); Platelet Count 255 X10^3/uL (150-400)
[2024-11-11 15:45] LABS: Ferritin 49 ng/mL (6-137)
== END ==
PROVIDERS: PCP Naturopath; Referring Provider Naturopath; Visit Provider Naturopath
DX: E61.1 Iron deficiency (principal)
CPT/HCPCS: 36415; 82728; 85025

== ENCOUNTER → 2025-04-13 14:27 | Outpatient (CLI) | payer OTHER, SELFPAY ==
[2025-04-13 15:04] LABS: Add Manual Diff / Slide Review NO; Hematocrit 40.6 % (36-46); Hemoglobin 14.2 g/dL (12.0-16.0); Lymphocytes Absolute Auto 1800 /uL (1100-4500); Mean Corpuscular HGB Conc 34.9 % (30-36); Mean Corpuscular Hemoglobin 30.5 PG (26-34); Mean Corpuscular Volume 87.5 fL (80-100); Platelet Count 301 X10^3/uL (150-400)
[2025-04-13 15:31] LABS: Alanine Aminotransferase 40 IU/L (<35); Albumin 4.1 g/dL (3.5-5.0); Albumin Globulin Ratio 1.5 (1.0-2.8); Alkaline Phosphatase 60 U/L (38-126); Blood Urea Nitrogen 13 mg/dL (7-17); Calcium 9.4 mg/dL (8.4-10.2); Carbon Dioxide 28 mmol/L (22-32); Chloride 104 mmol/L (98-107); Estimated Glomerular Filt Rate > 60 mL/min (>60); Globulin 2.8 g/dL (1.7-4.1); Glucose 97 mg/dL (70-99); HEMOLYSIS < 15 (0-50); Potassium 4.0 mmol/L (3.4-5.1); Sodium 138 mmol/L (137-145); Total Protein 6.9 g/dL (6.3-8.2)
[2025-04-13 15:49] LABS: Free T3, Triiodothyronine Free 4.04 pg/mL (2.77-5.27); Free T4, Direct Thyroxine 1.11 ng/dL (0.78-2.19)
[2025-04-13 16:02] LABS: Thyroid Stimulating Hormone 1.59 uIU/mL (0.47-4.68)
[2025-04-13 16:06] LABS: Ferritin 26 ng/mL (6-137)
[2025-04-13 16:21] LABS: Vitamin B12 354 pg/mL (239-931)
== END ==
PROVIDERS: PCP Naturopath; Referring Provider Naturopath; Visit Provider Naturopath
DX: E61.1 Iron deficiency (principal); R41.89 Other symptoms and signs involving cognitive functions and awareness; R53.83 Other fatigue
CPT/HCPCS: 36415; 80053; 82607; 82728; 84439; 84443; 84481; 85025; 86376